=== PATIENT | female | born 1975 | race Caucasian/White ===

== ENCOUNTER 2017-01-24 14:18 | Emergency (ER) | payer OTHER ==
[~2017-01-24] VITALS: Ht 162.5 cm; Wt 90.3 kg
[~2017-01-24 14:18] MED LIST: 'BUSPAR5 MG PO; 'PARAFON FORTE500 M1 PO; ACTOS45 MG PO; AMBIEN10 MG PO; AMBIEN5 MG PO; ATIVAN1 MG PO; ATORVASTATIN CA20 M1 PO; CIPRO250 MG PO; CIPRO500 MG PO; CIPROFLOXACIN500 MG PO; CLEOCIN HCL150 MG PO; CYCLOBENZAPRINE10 MG PO; DAYPRO600 M1 PO; EES400 MG PO; FANAPT1 MG PO; FLAGYL500 MG PO; FLONASE 0.05% 121 EA NAS; FLUOXETINE HCL10 MG PO; FLUOXETINE HYDR20 M1 PO; GLUCOPHAGE1000 MG PO; GLYBURIDE5 MG PO; HYDROCHLOROTH12.5 M3 PO; INVOKANA 100 MG PO; JANUVIA50 MG PO; LAMICTAL100 MG PO; LIPITOR20 MG PO; LISINOPRIL10 MG PO; LOMOTIL 0.025 M1 TAB PO; MACROBID100 M1 PO; MOTRIN600 MG PO; MOTRIN800 MG PO; NAPROSYN500 MG PO; NORCO 5-325 TA1 EACH PO; NOVOLIN 70100 UNIT/1 SQ; PEPCID40 MG PO; PHENERGAN W/ DE30 ML PO; PREDNICOT10 MG PO; PRILOSEC20 M1 PO; PRISTIQ50 MG PO; PROAIR HFA0.09 MG/AC INH; PYRIDIUM100 MG PO; PYRIDIUM200 MG PO; RIFADIN IV; RIFADIN300 MG PO; RISPERDAL0.25 MG PO; ROBAXIN750 MG PO; TOPAMAX100 MG PO; TRAMADOL HCL50 MG PO; VALIUM10 MG PO; VALIUM5 MG PO; VICODIN 5/500 505 MG PO; VICTOZA6 MG/ML SC; ZESTRIL2.5 MG PO; ZOCOR20 MG PO; ZOFRAN ODT4 MG SL; ZOFRAN4 MG PO; Zofran4 MG PO
[2017-01-24 14:41] VITALS: BP 130/84
[2017-01-24 14:52] LABS: BILIRUBIN NEGATIVE (NEGATIVE); BLOOD TRACE-LYSED (NEGATIVE); CLARITY CLOUDY (CLEAR); COLOR YELLOW (YELLOW); GLUCOSE 3+ (NEGATIVE); KETONE NEGATIVE (NEGATIVE); LEUKO ESTERASE TRACE (NEGATIVE); NITRITE NEGATIVE (NEGATIVE); PH 6.5 (5.0-9.0); PROTEIN NEGATIVE (NEGATIVE); UROBILINOGEN 0.2 E.U./dl (0.2-1.0)
[2017-01-24 15:01] LABS: BACTERIA 4+; EPITHELIAL CELLS 50-55
[2017-01-24 15:02] LABS: URINE REFLEX COMMENT YES (NO)
[2017-01-24] MEDS ORDERED: Motrin,Rufen800 MG PO (16:47)
[2017-01-24] MEDS ORDERED: CYCLOBENZAPRINE5 M3 PO (16:47)
[2017-01-24] MEDS ORDERED: HYDROCODONE BIT1 T11 PO (16:47)
[2017-01-24] MEDS ORDERED: CIPRO500 MG PO (16:47)
== END 2017-01-24 16:54 | disposition home or self-care (01) ==
LOC: ED 14:18
PROVIDERS: Emergency Medicine
DX: S40.011A Contusion of right shoulder, initial encounter (principal); N30.00 Acute cystitis without hematuria; Z88.0 Allergy status to penicillin; Z88.1 Allergy status to other antibiotic agents; Z88.8 Allergy status to other drugs, medicaments and biological substances; Z79.899 Other long term (current) drug therapy; W18.39XA Other fall on same level, initial encounter; Y93.89 Activity, other specified; Y92.89 Other specified places as the place of occurrence of the external cause; Y99.8 Other external cause status

== ENCOUNTER 2017-01-29 20:06 | Inpatient (IN) | payer OTHER ==
[~2017-01-29] VITALS: Ht 162.6 cm; Wt 90.3 kg
[2017-01-29] VITALS (7 sets, daily range): BP systolic 120–141; BP diastolic 72–91
--- NOTE | ~2017-01-29 | O ---
[place], [place] OPERATIVE NOTE NAME: SILVIA PARDO UNIT #: [id number] ROOM: 426 DOCTOR: IBETH BRADFORD MD BIRTHDATE: [birth year] DOS: GASTROENDOSCOPIC REPORT INDICATIONS: The patient is a 41 years old who has presented with multiple medical problems, among which has been concerns about abdominal pain, epigastric distress, suspected blood in stool. The patient is concerned with family members having history of Crohn's disease. Her H and H was borderline, 11 and 32, microcytic indices. Depression, diabetes, dyslipidemia, obesity and bipolar. PAST SURGICAL HISTORY: Hysterectomy, cardiac catheterization. PAST SOCIAL HISTORY: Nonsmoker, nonalcohol consumer. FAMILY HISTORY: Noncontributory. ALLERGIES: TO PENICILLIN PRODUCTS AND SULFA PRODUCTS AND NEURONTIN. PROCEDURE: Today's procedure part of investigation is panendoscopy plus biopsy. PREMEDICATION: Versed and Diprivan. SCOPE: Olympus forward-viewing gastroscope Q10 video. REPORT: After putting the patient in left lateral position and after application of lubricant to the scope, the scope was introduced; thereafter, under direct visualization, I advanced through the length of the esophagus without difficulty. A small hiatal hernia was noticed. Gastric pouch was entered. Mild gastritis seen. Duodenal bulb, second and third part within normal limits. The patient extubated and tolerated the procedure well. IMPRESSION: Mild gastritis, status post biopsy and small hiatal hernia. PLAN AND DISCUSSION: I am not convinced this is the source of pathology of the patient. This patient requires a colonoscopy as outpatient. Thank you very much indeed. Sincerely, [place], [place] OPERATIVE NOTE NAME: SILVIA PARDO UNIT #: [id number] ROOM: 426 DOCTOR: IBETH BRADFORD MD BIRTHDATE: [birth year] IBETH BRADFORD MD CM:OPRECORD:OPERATIVE NOTE [id number] IBETH BRADFORD MD 02/01/17 1704 interface
[~2017-01-29 20:06] MED LIST changes: +CYCLOBENZAPRINE5 M3 PO; +HYDROCODONE BIT1 T11 PO; +Motrin,Rufen800 MG PO
[2017-01-29 20:36] LABS: BASO % 0.2 % (0.0-1.0); EOS # 0.1 10*3/uL (0.0-0.4); EOS % 1.1 % (1.0-4.0); HEMOGLOBIN 13.1 g/dl (12.0-16.0); IG # 0.1 10*3/uL (0.0-0.1); LYMPH # 2.3 10*3/uL (1.3-4.4); LYMPH % 18.7 % (27.0-41.0); MEAN CELL VOLUME 71.6 fl (81.0-99.0); MEAN CORPUSCULAR HGB CONC 33.6 g/dl (33.0-37.0); MEAN PLATELET VOLUME 10.1 fl (9.6-12.3); MONO # 0.7 10*3/uL (0.1-1.0); MONO % 5.8 % (3.0-9.0); NEUT % 73.8 % (47.0-73.0); PLATELET COUNT AUTOMATED 283 10*3/uL (130-400); RED BLOOD COUNT 5.45 10*6/uL (4.10-5.10); RED CELL DISTRI WIDTH 14.3 % (0-14.5); WHITE BLOOD COUNT 12.3 10*3/uL (4.8-10.8)
[2017-01-29 20:56] LABS: ALBUMIN 3.8 gm/dl (3.1-4.5); ALKALINE PHOSPHATASE 82 U/L (45-117); BILIRUBIN, TOTAL 0.3 mg/dl (0.2-1.0); BUN 32 mg/dl (7-24); CARBON DIOXIDE 20 mmol/L (21-32); CHLORIDE 99 mmol/L (98-107); EST GLOM FILT AFRICAN AMERICAN 39 ml/min; GLUCOSE 401 mg/dL (65-99); MAGNESIUM 1.8 mg/dL (1.5-2.1); SGOT/AST 17 IU/L (3-35); SGPT/ALT 12 U/L (12-78); SODIUM 136 mmol/L (136-145); TOTAL PROTEIN 7.6 gm/dL (6.4-8.2)
[2017-01-29 21:00] LABS: TROPONIN I < 0.015 ng/ml (<0.045)
[2017-01-29 21:01] LABS: INTERNATIONAL NORM RATIO 0.9 (2.0-3.5)
[2017-01-30 01:00] VITALS: BP 106/74
[2017-01-30 06:33] LABS: BASO % 0.1 % (0.0-1.0); EOS # 0.1 10*3/uL (0.0-0.4); EOS % 1.1 % (1.0-4.0); HEMATOCRIT 36.6 % (37.0-47.0); IG # 0.1 10*3/uL (0.0-0.1); LYMPH # 2.2 10*3/uL (1.3-4.4); LYMPH % 24.1 % (27.0-41.0); MEAN CELL VOLUME 73.3 fl (81.0-99.0); MEAN CORPUSCULAR HGB CONC 32.8 g/dl (33.0-37.0); MEAN PLATELET VOLUME 9.5 fl (9.6-12.3); MONO # 0.5 10*3/uL (0.1-1.0); MONO % 5.7 % (3.0-9.0); NEUT # 6.3 10*3/uL (2.3-7.9); NEUT % 68.5 % (47.0-73.0); PLATELET COUNT AUTOMATED 251 10*3/uL (130-400); RED BLOOD COUNT 4.99 10*6/uL (4.10-5.10); RED CELL DISTRI WIDTH 14.2 % (0-14.5); WHITE BLOOD COUNT 9.2 10*3/uL (4.8-10.8)
[2017-01-30 06:46] LABS: HEMOGLOBIN A1c 9.3 % (4.8-5.6)
[2017-01-30 07:05] LABS: INTERNATIONAL NORM RATIO 0.9 (2.0-3.5); PROTHROMBIN TIME 9.9 SECONDS (9.0-12.4)
[2017-01-30 07:09] LABS: FREE T4 0.81 ng/dl (0.76-1.46); MAGNESIUM 1.9 mg/dL (1.5-2.1); PHOSPHOROUS 3.5 mg/dL (2.5-4.9); POTASSIUM 3.6 mmol/L (3.5-5.1)
[2017-01-30 07:16] LABS: THYROID STIM HORMONE (HS) 1.11 uIU/ml (0.358-4.75)
[2017-01-30 07:41] LABS: FOLIC ACID 17.53 ng/mL (>5.38); VITAMIN D, 25-HYDROXY 20.2 ng/mL (30-100)
[2017-01-30 08:00] VITALS: BP 131/65
[2017-01-30 12:00] VITALS: BP 120/70
[2017-01-30 16:00] VITALS: BP 110/62
[2017-01-30 20:00] VITALS: BP 100/52
[2017-01-31 00:54] VITALS: BP 110/53
[2017-01-31 08:00] VITALS: BP 110/58
[2017-01-31 12:00] VITALS: BP 104/89
[2017-01-31 15:15] LABS: BILIRUBIN NEGATIVE (NEGATIVE); BLOOD NEGATIVE (NEGATIVE); CLARITY SL CLOUDY (CLEAR); COLOR YELLOW (YELLOW); GLUCOSE 3+ (NEGATIVE); KETONE 1+ (NEGATIVE); LEUKO ESTERASE TRACE (NEGATIVE); NITRITE NEGATIVE (NEGATIVE); PROTEIN NEGATIVE (NEGATIVE); SPECIFIC GRAVITY 1.025 (1.005-1.030); UROBILINOGEN 0.2 E.U./dl (0.2-1.0)
[2017-01-31 15:24] LABS: RBC 0-2 rbc/hpf (0-2); URINE REFLEX COMMENT YES (NO); WBC 0-2 wbc/hpf (0-5)
[2017-01-31 16:00] VITALS: BP 106/63
[2017-01-31 20:00] VITALS: BP 112/57
[2017-02-01] VITALS (8 sets, daily range): BP systolic 109–135; BP diastolic 58–76
[2017-02-01 08:05] LABS: BASO % 0.3 % (0.0-1.0); EOS # 0.1 10*3/uL (0.0-0.4); EOS % 1.5 % (1.0-4.0); HEMATOCRIT 32.8 % (37.0-47.0); LYMPH # 1.6 10*3/uL (1.3-4.4); LYMPH % 25.1 % (27.0-41.0); MEAN CELL VOLUME 72.1 fl (81.0-99.0); MEAN CORPUSCULAR HGB 24.2 pg (27.0-31.0); MEAN CORPUSCULAR HGB CONC 33.5 g/dl (33.0-37.0); MEAN PLATELET VOLUME 9.7 fl (9.6-12.3); MONO # 0.4 10*3/uL (0.1-1.0); MONO % 6.6 % (3.0-9.0); NEUT # 4.3 10*3/uL (2.3-7.9); NEUT % 66.2 % (47.0-73.0); PLATELET COUNT AUTOMATED 188 10*3/uL (130-400); RED BLOOD COUNT 4.55 10*6/uL (4.10-5.10); WHITE BLOOD COUNT 6.5 10*3/uL (4.8-10.8)
[2017-02-01 08:18] LABS: BUN 13 mg/dl (7-24); CARBON DIOXIDE 25 mmol/L (21-32); CHLORIDE 104 mmol/L (98-107); EST GLOM FILT AFRICAN AMERICAN > 60 ml/min; GLUCOSE 291 mg/dL (65-99); POTASSIUM 4.1 mmol/L (3.5-5.1); SODIUM 138 mmol/L (136-145)
[2017-02-01] MEDS ORDERED: OMEPRAZOLE20 M2 PO (17:16)
[2017-02-01] MEDS ORDERED: ZOFRAN4 MG PO (17:16)
== END 2017-02-01 17:43 | disposition home or self-care (01) | DRG 871 ==
LOC: ED 20:06 → 4E 01-30 00:08 → EDHOLD 01-30 00:08 → 4E 01-30 00:20
PROVIDERS: Emergency Medicine Emergency Medical Services; Internal Medicine
PROC: 0DB68ZX Excision of Stomach, Via Natural or Artificial Opening Endoscopic, Diagnostic (ICD-10-PCS; principal; 2017-02-01)
DX: A41.9 Sepsis, unspecified organism (principal); N17.0 Acute kidney failure with tubular necrosis; K52.9 Noninfective gastroenteritis and colitis, unspecified; E66.9 Obesity, unspecified; E11.65 Type 2 diabetes mellitus with hyperglycemia; E78.5 Hyperlipidemia, unspecified; F31.9 Bipolar disorder, unspecified; K29.70 Gastritis, unspecified, without bleeding; K44.9 Diaphragmatic hernia without obstruction or gangrene; M54.32 Sciatica, left side; E55.9 Vitamin D deficiency, unspecified; Z90.710 Acquired absence of both cervix and uterus; Z82.49 Family history of ischemic heart disease and other diseases of the circulatory system; Z68.34 Body mass index [BMI] 34.0-34.9, adult; Z88.0 Allergy status to penicillin; Z88.1 Allergy status to other antibiotic agents; Z88.2 Allergy status to sulfonamides; Z79.4 Long term (current) use of insulin; Z79.2 Long term (current) use of antibiotics; Z79.899 Other long term (current) drug therapy; Z83.79 Family history of other diseases of the digestive system

== ENCOUNTER 2017-03-06 12:41 | Inpatient (IN) | payer OTHER ==
[~2017-03-06] VITALS: Ht 162.5 cm; Wt 89.9 kg
[~2017-03-06 12:41] MED LIST changes: +OMEPRAZOLE20 M2 PO
[2017-03-06 13:22] VITALS: BP 152/92
[2017-03-06 14:20] LABS: BASO % 0.2 % (0.0-1.0); EOS # 0.1 10*3/uL (0.0-0.4); EOS % 0.8 % (1.0-4.0); HEMATOCRIT 35.6 % (37.0-47.0); HEMOGLOBIN 11.9 g/dl (12.0-16.0); LYMPH # 1.6 10*3/uL (1.3-4.4); LYMPH % 18.8 % (27.0-41.0); MEAN CELL VOLUME 72.5 fl (81.0-99.0); MEAN CORPUSCULAR HGB 24.2 pg (27.0-31.0); MEAN CORPUSCULAR HGB CONC 33.4 g/dl (33.0-37.0); MEAN PLATELET VOLUME 9.8 fl (9.6-12.3); MONO # 0.3 10*3/uL (0.1-1.0); MONO % 3.8 % (3.0-9.0); NEUT # 6.4 10*3/uL (2.3-7.9); NEUT % 75.9 % (47.0-73.0); PLATELET COUNT AUTOMATED 230 10*3/uL (130-400); RED BLOOD COUNT 4.91 10*6/uL (4.10-5.10); RED CELL DISTRI WIDTH 15.2 % (0-14.5); WHITE BLOOD COUNT 8.4 10*3/uL (4.8-10.8)
[2017-03-06 14:28] LABS: INTERNATIONAL NORM RATIO 0.9 (2.0-3.5); PROTHROMBIN TIME 9.8 SECONDS (9.0-12.4)
[2017-03-06 14:35] LABS: ALBUMIN 3.3 gm/dl (3.1-4.5); ALKALINE PHOSPHATASE 79 U/L (45-117); BILIRUBIN, TOTAL 0.2 mg/dl (0.2-1.0); BUN 18 mg/dl (7-24); C-REACTIVE PROTEIN 0.83 MG/DL (0-0.3); CARBON DIOXIDE 24 mmol/L (21-32); CHLORIDE 105 mmol/L (98-107); CPK 21 U/L (26-192); EST GLOM FILT AFRICAN AMERICAN > 60 ml/min; GLUCOSE 388 mg/dL (65-99); MAGNESIUM 1.8 mg/dL (1.5-2.1); SGOT/AST 6 IU/L (3-35); SGPT/ALT 12 U/L (12-78); SODIUM 138 mmol/L (136-145); TOTAL PROTEIN 6.7 gm/dL (6.4-8.2)
[2017-03-06 14:38] LABS: CKMB < 0.5 ng/ml (0.5-3.6); TROPONIN I < 0.015 ng/ml (<0.045)
[2017-03-06 14:53] LABS: BILIRUBIN NEGATIVE (NEGATIVE); BLOOD NEGATIVE (NEGATIVE); CLARITY CLEAR (CLEAR); COLOR YELLOW (YELLOW); GLUCOSE 3+ (NEGATIVE); KETONE NEGATIVE (NEGATIVE); LEUKO ESTERASE NEGATIVE (NEGATIVE); NITRITE NEGATIVE (NEGATIVE); PH 5.5 (5.0-9.0); PROTEIN NEGATIVE (NEGATIVE); SPECIFIC GRAVITY <= 1.005 (1.005-1.030); UROBILINOGEN 0.2 E.U./dl (0.2-1.0)
[2017-03-06 15:07] LABS: RBC 0-2 rbc/hpf (0-2); URINE REFLEX COMMENT NO (NO); WBC 0-2 wbc/hpf (0-5)
[2017-03-06 16:16] LABS: LA>2 REFLEX 2 HR DRAW NOW
[2017-03-06 16:37] VITALS: BP 142/87
[2017-03-06] MEDS ORDERED: LISINOPRIL/HCTZ1 TA4 PO (16:43)
[2017-03-06] MEDS ORDERED: OMEPRAZOLE40 MG PO (16:44)
[2017-03-06 16:50] VITALS: BP 137/74
[2017-03-06 20:00] VITALS: BP 145/78
[2017-03-07] VITALS: BP 124/71
[2017-03-07 04:32] VITALS: BP 107/61
[2017-03-07 07:41] LABS: BASO % 0.3 % (0.0-1.0); EOS # 0.1 10*3/uL (0.0-0.4); EOS % 2.1 % (1.0-4.0); HEMATOCRIT 31.7 % (37.0-47.0); HEMOGLOBIN 10.4 g/dl (12.0-16.0); LYMPH # 1.9 10*3/uL (1.3-4.4); LYMPH % 28.9 % (27.0-41.0); MEAN CELL VOLUME 73.5 fl (81.0-99.0); MEAN CORPUSCULAR HGB 24.1 pg (27.0-31.0); MEAN CORPUSCULAR HGB CONC 32.8 g/dl (33.0-37.0); MEAN PLATELET VOLUME 9.7 fl (9.6-12.3); MONO # 0.4 10*3/uL (0.1-1.0); MONO % 5.4 % (3.0-9.0); NEUT # 4.2 10*3/uL (2.3-7.9); NEUT % 62.8 % (47.0-73.0); PLATELET COUNT AUTOMATED 231 10*3/uL (130-400); RED BLOOD COUNT 4.31 10*6/uL (4.10-5.10); WHITE BLOOD COUNT 6.6 10*3/uL (4.8-10.8)
[2017-03-07 07:59] LABS: BUN 14 mg/dl (7-24); CARBON DIOXIDE 26 mmol/L (21-32); CHLORIDE 108 mmol/L (98-107); EST GLOM FILT AFRICAN AMERICAN > 60 ml/min; GLUCOSE 181 mg/dL (65-99); POTASSIUM 3.5 mmol/L (3.5-5.1); SODIUM 144 mmol/L (136-145)
[2017-03-07 08:00] VITALS: BP 130/78
[2017-03-07 08:06] LABS: FREE T4 0.88 ng/dl (0.76-1.46)
[2017-03-07 12:00] VITALS: BP 111/75
== END 2017-03-07 14:41 | disposition home or self-care (01) | DRG 880 ==
LOC: ED 12:41 → 5E 15:38 → EDHOLD 15:38 → 5E 16:26
PROVIDERS: Emergency Medicine; Internal Medicine Hospice and Palliative Medicine
DX: F41.9 Anxiety disorder, unspecified (principal); E10.65 Type 1 diabetes mellitus with hyperglycemia; E66.09 Other obesity due to excess calories; F31.9 Bipolar disorder, unspecified; R00.0 Tachycardia, unspecified; K44.9 Diaphragmatic hernia without obstruction or gangrene; K29.50 Unspecified chronic gastritis without bleeding; Z90.710 Acquired absence of both cervix and uterus; Z82.49 Family history of ischemic heart disease and other diseases of the circulatory system; Z88.0 Allergy status to penicillin; Z88.1 Allergy status to other antibiotic agents; Z88.2 Allergy status to sulfonamides; Z88.8 Allergy status to other drugs, medicaments and biological substances; Z79.4 Long term (current) use of insulin; Z79.899 Other long term (current) drug therapy; Z68.34 Body mass index [BMI] 34.0-34.9, adult

== ENCOUNTER → 2017-04-26 | Day surgery (SDC) | payer OTHER ==
[2017-04-26] VITALS (14 sets, daily range): BP systolic 104–143; BP diastolic 51–89
[~2017-04-26] VITALS: Ht 162.5 cm; Wt 90.7 kg
[~2017-04-26] MED LIST changes: +LISINOPRIL/HCTZ1 TA4 PO; +OMEPRAZOLE40 MG PO
== END | disposition home or self-care (01) ==
LOC: SDC 04-21 10:15
DX: K59.00 Constipation, unspecified (principal); K62.5 Hemorrhage of anus and rectum; F32.9 Major depressive disorder, single episode, unspecified; E11.9 Type 2 diabetes mellitus without complications; K21.9 Gastro-esophageal reflux disease without esophagitis; F41.9 Anxiety disorder, unspecified; Z90.710 Acquired absence of both cervix and uterus; Z82.3 Family history of stroke; Z80.9 Family history of malignant neoplasm, unspecified; Z79.4 Long term (current) use of insulin; Z98.890 Other specified postprocedural states; Z88.0 Allergy status to penicillin; Z88.1 Allergy status to other antibiotic agents; Z88.8 Allergy status to other drugs, medicaments and biological substances

== ENCOUNTER → 2017-05-19 | Outpatient (CLI) | payer OTHER ==
[2017-05-19 12:01] LABS: BASO % 0.2 % (0.0-1.0); EOS # 0.2 10*3/uL (0.0-0.4); EOS % 1.9 % (1.0-4.0); HEMATOCRIT 37.4 % (37.0-47.0); HEMOGLOBIN 12.2 g/dl (12.0-16.0); LYMPH # 1.9 10*3/uL (1.3-4.4); MEAN CELL VOLUME 71.8 fl (81.0-99.0); MEAN CORPUSCULAR HGB 23.4 pg (27.0-31.0); MEAN CORPUSCULAR HGB CONC 32.6 g/dl (33.0-37.0); MEAN PLATELET VOLUME 9.7 fl (9.6-12.3); MONO # 0.4 10*3/uL (0.1-1.0); MONO % 4.8 % (3.0-9.0); NEUT # 5.6 10*3/uL (2.3-7.9); NEUT % 68.6 % (47.0-73.0); PLATELET COUNT AUTOMATED 274 10*3/uL (130-400); RED BLOOD COUNT 5.21 10*6/uL (4.10-5.10); RED CELL DISTRI WIDTH 14.2 % (0-14.5); WHITE BLOOD COUNT 8.1 10*3/uL (4.8-10.8)
[2017-05-19 12:04] LABS: HEMOGLOBIN A1c 8.8 % (4.8-5.6)
[2017-05-19 12:20] LABS: ALBUMIN 3.3 gm/dl (3.1-4.5); BILIRUBIN, TOTAL 0.2 mg/dl (0.2-1.0); BUN 15 mg/dl (7-24); CARBON DIOXIDE 26 mmol/L (21-32); CHLORIDE 104 mmol/L (98-107); CHOLESTEROL 233 mg/dL (<200); EST GLOM FILT AFRICAN AMERICAN > 60 ml/min; GLUCOSE 219 mg/dL (65-99); POTASSIUM 4.3 mmol/L (3.5-5.1); SGOT/AST 10 IU/L (3-35); SGPT/ALT 17 U/L (12-78); SODIUM 138 mmol/L (136-145); TOTAL PROTEIN 7.3 gm/dL (6.4-8.2); TRIGLYCERIDES 104 mg/dl (<150); VLDL CHOLESTEROL 21 mg/dL (6-40)
[2017-05-19 12:22] LABS: ALKALINE PHOSPHATASE 80 U/L (45-117); HDL CHOLESTEROL 57 mg/dl (40-60); LDL CHOLESTEROL 155 mg/dL (9-159)
== END | disposition home or self-care (01) ==
LOC: LAB 11:31
PROVIDERS: Nurse Practitioner Family
DX: E11.9 Type 2 diabetes mellitus without complications (principal)

== ENCOUNTER 2017-07-25 13:02 | Emergency (ER) | payer OTHER ==
[~2017-07-25] VITALS: Ht 162.5 cm; Wt 95.7 kg
[2017-07-25 13:12] VITALS: BP 147/83
[2017-07-25] MEDS ORDERED: CEPHALEXIN500 M1 PO (15:31)
== END 2017-07-25 15:32 | disposition home or self-care (01) ==
LOC: ED 13:02
DX: S90.31XA Contusion of right foot, initial encounter (principal); S99.921A Unspecified injury of right foot, initial encounter; L03.115 Cellulitis of right lower limb; R60.0 Localized edema; E11.9 Type 2 diabetes mellitus without complications; Z90.710 Acquired absence of both cervix and uterus; Z79.899 Other long term (current) drug therapy; Z88.0 Allergy status to penicillin; Z88.1 Allergy status to other antibiotic agents; Z88.8 Allergy status to other drugs, medicaments and biological substances; X58.XXXA Exposure to other specified factors, initial encounter; Y93.89 Activity, other specified; Y92.89 Other specified places as the place of occurrence of the external cause; Y99.9 Unspecified external cause status

== ENCOUNTER → 2017-10-30 | Outpatient (CLI) | payer OTHER ==
[~2017-10-30] MED LIST changes: +CEPHALEXIN500 M1 PO
[2017-10-30 12:00] LABS: BASO % 0.3 % (0.0-1.0); EOS # 0.1 10*3/uL (0.0-0.4); EOS % 1.6 % (1.0-4.0); HEMATOCRIT 38.8 % (37.0-47.0); HEMOGLOBIN 12.8 g/dl (12.0-16.0); LYMPH # 1.8 10*3/uL (1.3-4.4); MEAN CELL VOLUME 72.5 fl (81.0-99.0); MEAN CORPUSCULAR HGB 23.9 pg (27.0-31.0); MEAN PLATELET VOLUME 9.8 fl (9.6-12.3); MONO # 0.3 10*3/uL (0.1-1.0); MONO % 4.1 % (3.0-9.0); NEUT # 5.2 10*3/uL (2.3-7.9); NEUT % 69.6 % (47.0-73.0); PLATELET COUNT AUTOMATED 278 10*3/uL (130-400); RED BLOOD COUNT 5.35 10*6/uL (4.10-5.10); RED CELL DISTRI WIDTH 15.2 % (0-14.5); WHITE BLOOD COUNT 7.5 10*3/uL (4.8-10.8)
[2017-10-30 12:22] LABS: ALBUMIN 3.6 gm/dl (3.1-4.5); ALKALINE PHOSPHATASE 76 U/L (45-117); BUN 19 mg/dl (7-24); CHLORIDE 107 mmol/L (98-107); CHOLESTEROL 213 mg/dL (<200); CREATININE 0.88 mg/dL (0.55-1.02); HDL CHOLESTEROL 50 mg/dl (40-60); LDL CHOLESTEROL 134 mg/dL (9-159); POTASSIUM 3.6 mmol/L (3.5-5.1); SGOT/AST 9 IU/L (3-35); SGPT/ALT 15 U/L (12-78); SODIUM 139 mmol/L (136-145); TOTAL PROTEIN 7.4 gm/dL (6.4-8.2); TRIGLYCERIDES 143 mg/dl (<150); VLDL CHOLESTEROL 29 mg/dL (6-40)
== END | disposition home or self-care (01) ==
LOC: LAB 11:22
PROVIDERS: Nurse Practitioner Family
DX: I10 Essential (primary) hypertension (principal); E11.9 Type 2 diabetes mellitus without complications; E66.9 Obesity, unspecified

== ENCOUNTER 2018-02-05 09:36 | Inpatient (IN) | payer OTHER ==
[~2018-02-05] VITALS: Ht 162.5 cm; Wt 94.0 kg
--- NOTE | ~2018-02-05 | CON ---
[place], [place] REPORT OF CONSULTATION NAME: SILVIA PARDO [facility] #: [id number] UNIT #: [id number] ROOM: 412 DOCTOR: CHONG ROBERTSON MD BIRTHDATE: [birth year] DOS: 02/05/2018 REASON FOR CONSULTATION: The patient was seen today, 02/05/2018, at [facility] for evaluation of chest pain and syncope. HISTORY OF PRESENT ILLNESS: The patient is a 42-year-old woman who has a history of type 2 diabetes mellitus, on insulin, hypertension, anxiety, depression and gastroesophageal reflux disease along with a family history of early coronary disease in her father. She presented to the hospital in November 2016 with recurrent chest pain. A stress test done in the previous year had been unremarkable, but her pains persisted and therefore she did undergo cardiac catheterization on 12/06/2016. This showed a 40% stenosis of a dominant right coronary artery, but no other significant disease. It was felt that her pains were not cardiac in origin. Since then, she has continued to have intermittent chest pains. Over the last 2 days, she has also had syncopal episodes. She states that she had 5 within the last 48 hours. When she awoke from the episode, she felt heaviness in her chest, diaphoresis, and palpitations. She checked her sugar after one of these episodes and it was 124. Because of her concern regarding her cardiac status, she came to the Emergency Room. Since she has been hospitalized, she has had constant mild aching in her chest. She has some aching in her left arm and left leg. She has not had any further syncopal episodes. Her heart monitor has not shown any significant arrhythmias. PAST MEDICAL HISTORY: Includes the followin. Type 2 diabetes mellitus, on insulin. 2. Anxiety. 3. Depression. 4. Gastroesophageal reflux disease. 5. Essential hypertension. 6. History of sciatica on the left. 7. History of hysterectomy. MEDICATIONS: Prior to admission: Fluticasone nasal spray b.i.d., aspirin 81 mg daily, Canagliflozin 300 mg daily, cetirizine 10 mg daily, cholecalciferol 5000 units daily, diazepam 5 mg b.i.d., lisinopril with hydrochlorothiazide 1 tablet daily, magnesium oxide 250 mg tablet once a day, omeprazole 40 mg b.i.d., insulin 80 units subcutaneously at bedtime and regular insulin 70/30 of 60 units b.i.d. ALLERGIES: She lists allergies to PENICILLIN, AMPICILLIN, SULFAMETHOXAZOLE, TRIMETHOPRIM and GABAPENTIN. FAMILY HISTORY: The patient states that her mother and father both had heart disease in their early years. Her mother had heart disease in her 30s and her father had a heart attack in his early 20s. REVIEW OF SYSTEMS: The patient denies diplopia or loss of vision. She did have the syncopal episodes noted above. She denies nausea or vomiting. She denies fevers, chills, sweats or recent weight change. She has been taking her medications as prescribed. She denies orthopnea or PND. She does note aching [place], [place] REPORT OF CONSULTATION NAME: SILVIA PARDO UNIT #: [id number] ROOM: [facility] DOCTOR: CHONG ROBERTSON MD BIRTHDATE: [birth year] in her left arm and left leg. She did have the chest pain documented above. Breathing has been good. She denies cough, hemoptysis or hematemesis. She has a normal appetite. She denies blood in her stool or urine. She does have chronic abdominal pain and states that she does have a history of diverticulosis. She denies any peripheral edema. The remainder of the review of systems is negative except as noted above. SOCIAL HISTORY: The patient denies use of cigarettes or alcohol. PHYSICAL EXAMINATION: GENERAL: The patient is an overweight white female who is awake, alert and oriented. VITAL SIGNS: Pulse is 88 and regular, blood pressure is 121/72. She is afebrile. She weighs 94.0 kg and has a body mass index of 35.6. HEENT: Normocephalic and atraumatic. Extraocular muscles are intact. Sclerae are clear. Pupils are equal, round and react to light. The oral mucosa is moist. Tongue is midline. NECK: Supple. She has no jugular distention. Carotids are full. I heard no bruits. She had no neck or supraclavicular masses and no thyromegaly. LUNGS: Respirations are unlabored. Her chest is clear to auscultation and percussion. She has no presacral edema or chest wall tenderness. HEART: Has a regular rhythm. She has a fourth heart sound, but no third heart sound or murmur. The PMI is not displaced. She has no precordial heave, lift or thrill. ABDOMEN: Soft and minimally tender, but normoactive without masses, organomegaly or bruits. EXTREMITIES: Showed no edema. Peripheral pulses are palpable in the feet. LABORATORY DATA: I reviewed her electrocardiogram, which showed sinus rhythm and was a normal tracing. Serial troponin levels have been normal thus far. Sugar on admission was 136. IMPRESSIONS: 1. Syncopal episodes. Etiology not yet determined. However, by history, it sounds like these may be related to swings in her sugar. I see no evidence for a significant arrhythmia causing her problems. 2. History of mild coronary artery disease. 3. Atypical chest pain. 4. Strong family history of coronary artery disease. 5. Type 2 diabetes mellitus, on insulin. 6. Hyperlipidemia. 7. Hypertension. 8. Anxiety and depression. PLAN: We will evaluate her further with an echocardiogram and a stress test. We will also start her on a statin because of her risk factors. Further recommendations will depend upon the results of her stress test. I thank the hospitalist physicians for asking our advice regarding his care. [place], [place] REPORT OF CONSULTATION NAME: SILVIA PARDO UNIT #: [id number] ROOM: 412 DOCTOR: CHONG ROBERTSON MD BIRTHDATE: [birth year] CHONG ROBERTSON MD CM:CONSTR:REPORT OF CONSULTATION 1456 02/05/18 1546 interface
--- NOTE | ~2018-02-05 | PR ---
[place], [place] PROGRESS NOTE NAME: SILVIA PARDO [facility] #: [id number] UNIT #: [id number] ROOM: 412 DOCTOR: CHONG ROBERTSON MD BIRTHDATE: [birth year] DOS: 02/06/2018 SUBJECTIVE: The patient was seen in the cardiology department today just prior to her stress test. She is a 42-year-old woman who came to the hospital yesterday with chest discomfort. Thus far, she has ruled out for myocardial infarction. Her sugars are still not well controlled. This morning, her blood sugar was in the 60s. She was given IV dextrose. She still feels quite weak this morning after the IV dextrose. She denies any chest pain at this time. Her blood sugar right now is 101. PHYSICAL EXAMINATION: VITAL SIGNS: Her pulse rate now is 69, blood pressure is 125/71. She has a temperature of 100.7. NECK: Supple. She has no jugular distention. Carotids are full. LUNGS: Respirations are unlabored. Chest is clear. HEART: Has a regular rhythm and S4 gallop. ABDOMEN: Soft and normally active. EXTREMITIES: Showed no edema. IMPRESSION: 1. Atypical chest pain. The patient shows no signs of acute coronary syndrome. 2. Diabetes mellitus with sugars not yet well controlled. PLAN: We will proceed with a pharmacologic stress test. Further recommendations from cardiac standpoint will depend upon the results of the stress test. We thank the hospitalist physicians for asking our advice regarding the patient's care. CHONG ROBERTSON MD CM:PNTRANS [id number] CHONG ROBERTSON MD 02/07/18 1206 interface
[2018-02-05 09:46] VITALS: BP 147/76
[2018-02-05 09:57] LABS: BASO % 0.3 % (0.0-1.0); EOS # 0.1 10*3/uL (0.0-0.4); EOS % 1.4 % (1.0-4.0); HEMATOCRIT 37.2 % (37.0-47.0); LYMPH # 1.7 10*3/uL (1.3-4.4); LYMPH % 21.3 % (27.0-41.0); MEAN CELL VOLUME 72.4 fl (81.0-99.0); MEAN CORPUSCULAR HGB 23.3 pg (27.0-31.0); MEAN CORPUSCULAR HGB CONC 32.3 g/dl (33.0-37.0); MEAN PLATELET VOLUME 9.6 fl (9.6-12.3); MONO # 0.4 10*3/uL (0.1-1.0); MONO % 5.4 % (3.0-9.0); NEUT # 5.6 10*3/uL (2.3-7.9); NEUT % 71.2 % (47.0-73.0); PLATELET COUNT AUTOMATED 274 10*3/uL (130-400); RED BLOOD COUNT 5.14 10*6/uL (4.10-5.10); RED CELL DISTRI WIDTH 14.9 % (0-14.5); WHITE BLOOD COUNT 7.8 10*3/uL (4.8-10.8)
[2018-02-05 10:05] LABS: ACT PARTIAL THROMBO TIME 22.4 SECONDS (20.8-31.5); INTERNATIONAL NORM RATIO 0.9 (2.0-3.5)
[2018-02-05 10:13] LABS: ALBUMIN 3.7 gm/dl (3.1-4.5); ALKALINE PHOSPHATASE 94 U/L (45-117); BUN 12 mg/dl (7-24); CHLORIDE 101 mmol/L (98-107); CREATININE 0.84 mg/dL (0.55-1.02); POTASSIUM 3.4 mmol/L (3.5-5.1); SGOT/AST 12 IU/L (3-35); SGPT/ALT 17 U/L (12-78); SODIUM 138 mmol/L (136-145); TOTAL PROTEIN 7.7 gm/dL (6.4-8.2)
[2018-02-05 10:16] LABS: TROPONIN I < 0.015 ng/ml (<0.045)
[2018-02-05] MEDS ORDERED: ASPIRIN CHEWABL81 MG PO (11:19)
[2018-02-05] MEDS ORDERED: MAGNESIUM OXID250 M2 PO (11:21)
[2018-02-05] MEDS ORDERED: ALL DAY ALLERGY10 M2 PO (11:21)
[2018-02-05] MEDS ORDERED: VITAMIN D5000 UNIT PO (11:21)
[2018-02-05] MEDS ORDERED: INVOKANA300 M1 PO (11:22)
[2018-02-05] MEDS ORDERED: ALLER-FLO15.8 ML NAS (11:24)
[2018-02-05 11:53] VITALS: BP 142/84
[2018-02-05 12:00] VITALS: BP 121/72
[2018-02-05 12:23] VITALS: BP 121/72
[2018-02-05] MEDS ORDERED: DIAZEPAM5 MG PO (13:23)
[2018-02-05] MEDS ORDERED: TOUJEO SOL300 UNIT/1 SQ (14:25)
[2018-02-05 16:00] VITALS: BP 105/62
[2018-02-05 20:00] VITALS: BP 119/69
[2018-02-06 00:30] VITALS: BP 110/71
[2018-02-06 04:00] VITALS: BP 111/68
[2018-02-06 08:00] VITALS: BP 125/71
[2018-02-06 08:20] LABS: BASO % 0.2 % (0.0-1.0); EOS # 0.1 10*3/uL (0.0-0.4); HEMATOCRIT 37.2 % (37.0-47.0); HEMOGLOBIN 11.7 g/dl (12.0-16.0); LYMPH # 0.9 10*3/uL (1.3-4.4); LYMPH % 9.5 % (27.0-41.0); MEAN CORPUSCULAR HGB 23.6 pg (27.0-31.0); MEAN CORPUSCULAR HGB CONC 31.5 g/dl (33.0-37.0); MEAN PLATELET VOLUME 10.1 fl (9.6-12.3); MONO # 0.4 10*3/uL (0.1-1.0); MONO % 3.8 % (3.0-9.0); NEUT # 7.7 10*3/uL (2.3-7.9); NEUT % 85.1 % (47.0-73.0); PLATELET COUNT AUTOMATED 250 10*3/uL (130-400); RED BLOOD COUNT 4.96 10*6/uL (4.10-5.10); WHITE BLOOD COUNT 9.1 10*3/uL (4.8-10.8)
[2018-02-06 08:26] LABS: BUN 11 mg/dl (7-24); CHLORIDE 101 mmol/L (98-107); CHOLESTEROL 212 mg/dL (<200); CREATININE 0.89 mg/dL (0.55-1.02); HDL CHOLESTEROL 39 mg/dl (40-60); LDL CHOLESTEROL 127 mg/dL (9-159); PHOSPHOROUS 3.4 mg/dL (2.5-4.9); POTASSIUM 3.8 mmol/L (3.5-5.1); SODIUM 138 mmol/L (136-145); TRIGLYCERIDES 230 mg/dl (<150); VLDL CHOLESTEROL 46 mg/dL (6-40)
[2018-02-06 09:00] LABS: VITAMIN D, 25-HYDROXY 23.3 ng/mL (30-100)
[2018-02-06 12:00] VITALS: BP 121/57
[2018-02-06 16:00] VITALS: BP 95/60
[2018-02-06 20:00] VITALS: BP 113/69
[2018-02-07 00:26] VITALS: BP 101/62
[2018-02-07 08:00] VITALS: BP 116/69
[2018-02-07] MEDS ORDERED: ZOCOR20 MG PO (13:10)
== END 2018-02-07 14:06 | disposition home or self-care (01) | DRG 206 ==
LOC: ED 09:36 → EDHOLD 09:58 → 4E 09:58
PROVIDERS: Nurse Practitioner Family; Student in an Organized Health Care Education/Training Program
PROC: 4A02XM4 Measurement of Cardiac Total Activity, External Approach (ICD-10-PCS; principal; 2018-02-06)
PROC: 3E073KZ Introduction of Other Diagnostic Substance into Coronary Artery, Percutaneous Approach (ICD-10-PCS; 2018-02-06)
DX: M94.0 Chondrocostal junction syndrome [Tietze] (principal); E11.65 Type 2 diabetes mellitus with hyperglycemia; E66.01 Morbid (severe) obesity due to excess calories; D50.9 Iron deficiency anemia, unspecified; D72.810 Lymphocytopenia; I25.10 Atherosclerotic heart disease of native coronary artery without angina pectoris; M54.32 Sciatica, left side; E87.6 Hypokalemia; E78.5 Hyperlipidemia, unspecified; E55.9 Vitamin D deficiency, unspecified; F32.9 Major depressive disorder, single episode, unspecified; K44.9 Diaphragmatic hernia without obstruction or gangrene; K21.9 Gastro-esophageal reflux disease without esophagitis; R07.89 Other chest pain; K29.70 Gastritis, unspecified, without bleeding; F41.9 Anxiety disorder, unspecified; Z68.35 Body mass index [BMI] 35.0-35.9, adult; Z79.4 Long term (current) use of insulin; Z88.1 Allergy status to other antibiotic agents; Z88.0 Allergy status to penicillin; Z88.2 Allergy status to sulfonamides; Z88.8 Allergy status to other drugs, medicaments and biological substances; Z90.710 Acquired absence of both cervix and uterus; Z82.49 Family history of ischemic heart disease and other diseases of the circulatory system; Z82.3 Family history of stroke; Z80.9 Family history of malignant neoplasm, unspecified

== ENCOUNTER 2018-02-28 12:27 | Emergency (ER) | payer OTHER ==
[~2018-02-28] VITALS: Ht 162.5 cm; Wt 95.3 kg
[~2018-02-28 12:27] MED LIST changes: +ALL DAY ALLERGY10 M2 PO; +ALLER-FLO15.8 ML NAS; +ASPIRIN CHEWABL81 MG PO; +DIAZEPAM5 MG PO; +INVOKANA300 M1 PO; +MAGNESIUM OXID250 M2 PO; +TOUJEO SOL300 UNIT/1 SQ; +VITAMIN D5000 UNIT PO
[2018-02-28 12:31] VITALS: BP 96/68
[2018-02-28 13:01] LABS: BASO % 0.2 % (0.0-1.0); EOS # 0.1 10*3/uL (0.0-0.4); EOS % 1.1 % (1.0-4.0); HEMATOCRIT 36.9 % (37.0-47.0); HEMOGLOBIN 11.9 g/dl (12.0-16.0); MEAN CELL VOLUME 72.4 fl (81.0-99.0); MEAN CORPUSCULAR HGB 23.3 pg (27.0-31.0); MEAN CORPUSCULAR HGB CONC 32.2 g/dl (33.0-37.0); MEAN PLATELET VOLUME 10.2 fl (9.6-12.3); MONO # 0.6 10*3/uL (0.1-1.0); MONO % 5.5 % (3.0-9.0); NEUT # 7.7 10*3/uL (2.3-7.9); NEUT % 73.7 % (47.0-73.0); PLATELET COUNT AUTOMATED 300 10*3/uL (130-400); RED CELL DISTRI WIDTH 15.2 % (0-14.5); WHITE BLOOD COUNT 10.5 10*3/uL (4.8-10.8)
[2018-02-28 13:11] LABS: ACT PARTIAL THROMBO TIME 21.1 SECONDS (20.8-31.5); INTERNATIONAL NORM RATIO 0.9 (2.0-3.5)
[2018-02-28 13:27] LABS: ALBUMIN 3.7 gm/dl (3.1-4.5); ALKALINE PHOSPHATASE 87 U/L (45-117); BUN 18 mg/dl (7-24); CHLORIDE 99 mmol/L (98-107); CREATININE 1.13 mg/dL (0.55-1.02); POTASSIUM 3.9 mmol/L (3.5-5.1); SGOT/AST 9 IU/L (3-35); SGPT/ALT 14 U/L (12-78); SODIUM 132 mmol/L (136-145); TOTAL PROTEIN 7.3 gm/dL (6.4-8.2)
[2018-02-28 13:31] LABS: TROPONIN I < 0.015 ng/ml (<0.045)
[2018-02-28] MEDS ORDERED: NAPROSYN500 MG PO (15:05)
[2018-02-28] MEDS ORDERED: CYCLOBENZAPRINE5 M3 PO (15:05)
== END 2018-02-28 15:29 | disposition home or self-care (01) ==
LOC: ED 12:27
PROVIDERS: Emergency Medicine
DX: S49.92XA Unspecified injury of left shoulder and upper arm, initial encounter (principal); R55 Syncope and collapse; M54.2 Cervicalgia; R07.81 Pleurodynia; E78.5 Hyperlipidemia, unspecified; E11.65 Type 2 diabetes mellitus with hyperglycemia; E66.9 Obesity, unspecified; Z79.4 Long term (current) use of insulin; Z90.710 Acquired absence of both cervix and uterus; Z79.82 Long term (current) use of aspirin; Z88.0 Allergy status to penicillin; Z88.1 Allergy status to other antibiotic agents; Z88.8 Allergy status to other drugs, medicaments and biological substances; W19.XXXA Unspecified fall, initial encounter; Y93.89 Activity, other specified; Y92.89 Other specified places as the place of occurrence of the external cause; Y99.9 Unspecified external cause status

== ENCOUNTER → 2018-04-20 | Outpatient (CLI) | payer OTHER | END | disposition home or self-care (01) | LOC: RESCLI 02:40 | DX: I10 Essential (primary) hypertension (principal); E11.40 Type 2 diabetes mellitus with diabetic neuropathy, unspecified; I25.119 Atherosclerotic heart disease of native coronary artery with unspecified angina pectoris; K59.00 Constipation, unspecified; K21.9 Gastro-esophageal reflux disease without esophagitis; F41.9 Anxiety disorder, unspecified; E66.01 Morbid (severe) obesity due to excess calories; J30.9 Allergic rhinitis, unspecified; F32.9 Major depressive disorder, single episode, unspecified; R29.898 Other symptoms and signs involving the musculoskeletal system; Z79.4 Long term (current) use of insulin; Z88.0 Allergy status to penicillin ==

== ENCOUNTER → 2018-05-02 | Outpatient (CLI) | payer OTHER ==
[2018-05-02 11:50] LABS: BILIRUBIN NEGATIVE (NEGATIVE); BLOOD NEGATIVE (NEGATIVE); CLARITY CLOUDY (CLEAR); COLOR YELLOW (YELLOW); GLUCOSE 3+ (NEGATIVE); KETONE NEGATIVE (NEGATIVE); LEUKO ESTERASE NEGATIVE (NEGATIVE); NITRITE NEGATIVE (NEGATIVE); PH 5.5 (5.0-9.0); UROBILINOGEN 0.2 E.U./dl (0.2-1.0)
[2018-05-02 12:02] LABS: BASO % 0.3 % (0.0-1.0); EOS # 0.1 10*3/uL (0.0-0.4); EOS % 1.4 % (1.0-4.0); HEMATOCRIT 35.5 % (37.0-47.0); HEMOGLOBIN 11.2 g/dl (12.0-16.0); LYMPH # 1.6 10*3/uL (1.3-4.4); MEAN CELL VOLUME 73.7 fl (81.0-99.0); MEAN CORPUSCULAR HGB 23.2 pg (27.0-31.0); MEAN CORPUSCULAR HGB CONC 31.5 g/dl (33.0-37.0); MEAN PLATELET VOLUME 10.3 fl (9.6-12.3); MONO # 0.4 10*3/uL (0.1-1.0); MONO % 5.4 % (3.0-9.0); NEUT # 5.2 10*3/uL (2.3-7.9); NEUT % 70.4 % (47.0-73.0); PLATELET COUNT AUTOMATED 298 10*3/uL (130-400); RED BLOOD COUNT 4.82 10*6/uL (4.10-5.10); RED CELL DISTRI WIDTH 14.7 % (0-14.5); WHITE BLOOD COUNT 7.4 10*3/uL (4.8-10.8)
[2018-05-02 12:10] LABS: ALBUMIN 3.4 gm/dl (3.1-4.5); ALKALINE PHOSPHATASE 83 U/L (45-117); BUN 13 mg/dl (7-24); CHLORIDE 106 mmol/L (98-107); CHOLESTEROL 185 mg/dL (<200); CREATININE 0.89 mg/dL (0.55-1.02); HDL CHOLESTEROL 42 mg/dl (40-60); LDL CHOLESTEROL 113 mg/dL (9-159); POTASSIUM 3.9 mmol/L (3.5-5.1); SGOT/AST 8 IU/L (3-35); SGPT/ALT 13 U/L (12-78); SODIUM 140 mmol/L (136-145); TRIGLYCERIDES 151 mg/dl (<150); VLDL CHOLESTEROL 30 mg/dL (6-40)
[2018-05-02 12:44] LABS: BACTERIA 2+; EPITHELIAL CELLS 20-30
== END | disposition home or self-care (01) ==
LOC: LAB 10:57
PROVIDERS: Internal Medicine Nephrology
DX: I10 Essential (primary) hypertension (principal); K21.9 Gastro-esophageal reflux disease without esophagitis; F41.9 Anxiety disorder, unspecified; E66.01 Morbid (severe) obesity due to excess calories; F32.9 Major depressive disorder, single episode, unspecified; E11.40 Type 2 diabetes mellitus with diabetic neuropathy, unspecified; Z79.4 Long term (current) use of insulin; Z88.0 Allergy status to penicillin

== ENCOUNTER → 2018-05-18 | Outpatient (CLI) | payer OTHER ==
[2018-05-18 15:20] LABS: BASO % 0.3 % (0.0-1.0); EOS # 0.1 10*3/uL (0.0-0.4); EOS % 1.4 % (1.0-4.0); HEMATOCRIT 36.4 % (37.0-47.0); HEMOGLOBIN 11.5 g/dl (12.0-16.0); LYMPH # 2.3 10*3/uL (1.3-4.4); LYMPH % 25.9 % (27.0-41.0); MEAN CELL VOLUME 73.4 fl (81.0-99.0); MEAN CORPUSCULAR HGB 23.2 pg (27.0-31.0); MEAN CORPUSCULAR HGB CONC 31.6 g/dl (33.0-37.0); MEAN PLATELET VOLUME 9.7 fl (9.6-12.3); MONO # 0.4 10*3/uL (0.1-1.0); MONO % 4.7 % (3.0-9.0); NEUT % 67.4 % (47.0-73.0); PLATELET COUNT AUTOMATED 271 10*3/uL (130-400); RED BLOOD COUNT 4.96 10*6/uL (4.10-5.10); RED CELL DISTRI WIDTH 15.1 % (0-14.5)
== END | disposition home or self-care (01) ==
LOC: RESCLI 02:26
PROVIDERS: Student in an Organized Health Care Education/Training Program
DX: M50.822 Other cervical disc disorders at C5-C6 level (principal); M25.512 Pain in left shoulder; R29.898 Other symptoms and signs involving the musculoskeletal system; E11.40 Type 2 diabetes mellitus with diabetic neuropathy, unspecified; I25.119 Atherosclerotic heart disease of native coronary artery with unspecified angina pectoris; K59.00 Constipation, unspecified; K21.9 Gastro-esophageal reflux disease without esophagitis; I10 Essential (primary) hypertension; J30.9 Allergic rhinitis, unspecified; F41.9 Anxiety disorder, unspecified; E66.01 Morbid (severe) obesity due to excess calories; K62.5 Hemorrhage of anus and rectum; F32.9 Major depressive disorder, single episode, unspecified; Z79.899 Other long term (current) drug therapy; Z88.8 Allergy status to other drugs, medicaments and biological substances; Z79.4 Long term (current) use of insulin; Z88.0 Allergy status to penicillin; Z90.710 Acquired absence of both cervix and uterus

== ENCOUNTER 2018-07-10 07:29 | Emergency (ER) | payer OTHER ==
[~2018-07-10] VITALS: Ht 162.5 cm; Wt 95.3 kg
--- NOTE | ~2018-07-10 | EKG ---
[place], [place] ELECTROCARDIOGRAM REPORT NAME: SILVIA PARDO UNIT #: [id number] ROOM: DOCTOR: CAMILA DRAFT REPORT BIRTHDATE: [birth year] [facility] Test Date: 2018-07-10 Test Time: 07:56:12 Pat Name: SILVIA PARDO Department: Room: Gender: F Home Manager: DEMETRIUS : 1975 Requested By: BIANKA ANDRE Order Number: [id number] Reading MD: Jose Medel MD Measurements Intervals [place] Rate: 79 P: 40 PA: 131 QRS: -39 QRSD: 78 T: 46 QT: 379 QTc: 435 Interpretive Statements Sinus rhythm Electronically Signed On 07-11-2018 12:05:09 PDT by Jose Medel MD CM:EKGRPT:ELECTROCARDIOGRAM REPORT [id number] BIANKA PARNELL DRAFT REPORT BIANKA ANDRE DO
[2018-07-10] MEDS ORDERED: LATU40TA PO (07:44)
[2018-07-10] MEDS ORDERED: HUMALOG100 UNIT/1 SQ (07:45)
[2018-07-10] MEDS ORDERED: TOUJEO SOL300 UNIT/1 SQ (07:45)
[2018-07-10 08:01] LABS: BASO % 0.4 % (0.0-1.0); EOS # 0.2 10*3/uL (0.0-0.4); EOS % 3.1 % (1.0-4.0); HEMATOCRIT 34.1 % (37.0-47.0); HEMOGLOBIN 10.9 g/dl (12.0-16.0); LYMPH # 1.9 10*3/uL (1.3-4.4); MEAN CELL VOLUME 71.9 fl (81.0-99.0); MEAN PLATELET VOLUME 10.4 fl (9.6-12.3); MONO # 0.4 10*3/uL (0.1-1.0); MONO % 5.4 % (3.0-9.0); NEUT # 4.3 10*3/uL (2.3-7.9); NEUT % 63.2 % (47.0-73.0); PLATELET COUNT AUTOMATED 236 10*3/uL (130-400); RED BLOOD COUNT 4.74 10*6/uL (4.10-5.10); RED CELL DISTRI WIDTH 14.6 % (0-14.5); WHITE BLOOD COUNT 6.9 10*3/uL (4.8-10.8)
[2018-07-10 08:10] LABS: ACT PARTIAL THROMBO TIME 23.8 SECONDS (20.8-31.5); INTERNATIONAL NORM RATIO 0.9 (2.0-3.5)
[2018-07-10 08:17] LABS: ALBUMIN 3.1 gm/dl (3.1-4.5); ALKALINE PHOSPHATASE 76 U/L (45-117); BUN 12 mg/dl (7-24); CHLORIDE 103 mmol/L (98-107); CREATININE 0.72 mg/dL (0.55-1.02); LIPASE 70 U/L (73-393); POTASSIUM 3.9 mmol/L (3.5-5.1); SGOT/AST 15 IU/L (3-35); SGPT/ALT 19 U/L (12-78); SODIUM 137 mmol/L (136-145); TOTAL PROTEIN 7.1 gm/dL (6.4-8.2)
[2018-07-10 08:19] LABS: BETA-HCG, QUANT < 1.0 mIU/mL (1-3); TROPONIN I < 0.015 ng/ml (<0.045)
[2018-07-10 08:27] VITALS: BP 116/71
[2018-07-10] MEDS ORDERED: ZITHROMAX250 MG PO (08:49)
[2018-07-26] MEDS ORDERED: TOUJEO SOL300 UNIT/1 SC (08:52)
[2018-07-26] MEDS ORDERED: COLACE100 MG PO (08:53)
[2018-07-26] MEDS ORDERED: ZOCOR40 MG PO (08:54)
[2018-07-26] MEDS ORDERED: LATU40TA PO (08:55)
== END 2018-07-10 08:59 | disposition home or self-care (01) ==
LOC: ED 07:29
PROVIDERS: Emergency Medicine
DX: J20.9 Acute bronchitis, unspecified (principal); E78.5 Hyperlipidemia, unspecified; E11.9 Type 2 diabetes mellitus without complications; E66.9 Obesity, unspecified; Z88.0 Allergy status to penicillin; Z88.1 Allergy status to other antibiotic agents; Z88.2 Allergy status to sulfonamides; Z88.8 Allergy status to other drugs, medicaments and biological substances; Z79.82 Long term (current) use of aspirin; Z79.899 Other long term (current) drug therapy; Z79.4 Long term (current) use of insulin; Z90.710 Acquired absence of both cervix and uterus

== ENCOUNTER → 2018-07-30 | Day surgery (SDC) | payer OTHER ==
[~2018-07-30] VITALS: Ht 162.5 cm; Wt 95.3 kg
[~2018-07-30] MED LIST changes: +COLACE100 MG PO; +HUMALOG100 UNIT/1 SQ; +LATU40TA PO; +TOUJEO SOL300 UNIT/1 SC; +ZITHROMAX250 MG PO; +ZOCOR40 MG PO
[2018-07-30 07:34] VITALS: BP 147/81
[2018-07-30 08:38] VITALS: BP 115/67
[2018-07-30 08:46] VITALS: BP 124/72
[2018-07-30 09:11] VITALS: BP 131/78
== END | disposition home or self-care (01) ==
LOC: SDC 07-12 14:00
DX: R10.9 Unspecified abdominal pain (principal); K29.50 Unspecified chronic gastritis without bleeding; D64.9 Anemia, unspecified; I10 Essential (primary) hypertension; I25.10 Atherosclerotic heart disease of native coronary artery without angina pectoris; E11.40 Type 2 diabetes mellitus with diabetic neuropathy, unspecified; E66.01 Morbid (severe) obesity due to excess calories; G89.29 Other chronic pain; K21.9 Gastro-esophageal reflux disease without esophagitis; F41.8 Other specified anxiety disorders; F31.9 Bipolar disorder, unspecified; Z90.710 Acquired absence of both cervix and uterus; Z98.890 Other specified postprocedural states; Z68.36 Body mass index [BMI] 36.0-36.9, adult; Z88.1 Allergy status to other antibiotic agents; Z88.0 Allergy status to penicillin; Z88.2 Allergy status to sulfonamides; Z79.899 Other long term (current) drug therapy; Z82.49 Family history of ischemic heart disease and other diseases of the circulatory system; Z80.9 Family history of malignant neoplasm, unspecified

== ENCOUNTER → 2018-11-21 | Outpatient (CLI) | payer OTHER | END | disposition home or self-care (01) | LOC: MAMMO 13:40 | DX: Z12.31 Encounter for screening mammogram for malignant neoplasm of breast (principal) ==

== ENCOUNTER → 2018-11-23 | Outpatient (CLI) | payer OTHER ==
[2018-11-23 09:15] LABS: BASO % 0.4 % (0.0-1.0); EOS # 0.1 10*3/uL (0.0-0.4); EOS % 1.5 % (1.0-4.0); HEMATOCRIT 36.8 % (37.0-47.0); HEMOGLOBIN 11.8 g/dl (12.0-16.0); LYMPH # 1.7 10*3/uL (1.3-4.4); LYMPH % 20.3 % (27.0-41.0); MEAN CELL VOLUME 73.2 fl (81.0-99.0); MEAN CORPUSCULAR HGB 23.5 pg (27.0-31.0); MEAN CORPUSCULAR HGB CONC 32.1 g/dl (33.0-37.0); MEAN PLATELET VOLUME 9.4 fl (9.6-12.3); MONO # 0.5 10*3/uL (0.1-1.0); MONO % 5.3 % (3.0-9.0); NEUT # 6.1 10*3/uL (2.3-7.9); NEUT % 71.9 % (47.0-73.0); PLATELET COUNT AUTOMATED 262 10*3/uL (130-400); RED BLOOD COUNT 5.03 10*6/uL (4.10-5.10); RED CELL DISTRI WIDTH 15.2 % (0-14.5); WHITE BLOOD COUNT 8.5 10*3/uL (4.8-10.8)
[2018-11-23 09:43] LABS: ALBUMIN 3.4 gm/dl (3.1-4.5); ALKALINE PHOSPHATASE 80 U/L (45-117); BUN 22 mg/dl (7-24); CHLORIDE 103 mmol/L (98-107); CHOLESTEROL 154 mg/dL (<200); CREATININE 0.85 mg/dL (0.55-1.02); HDL CHOLESTEROL 45 mg/dl (40-60); LDL CHOLESTEROL 74 mg/dL (9-159); SGOT/AST 8 IU/L (3-35); SGPT/ALT 16 U/L (12-78); SODIUM 139 mmol/L (136-145); TOTAL PROTEIN 7.3 gm/dL (6.4-8.2); TRIGLYCERIDES 177 mg/dl (<150); VLDL CHOLESTEROL 35 mg/dL (6-40)
[2018-11-23 11:09] LABS: VITAMIN D, 25-HYDROXY 16.9 ng/mL (30-100)
== END | disposition home or self-care (01) ==
LOC: LAB 08:45
PROVIDERS: Nurse Practitioner Family
DX: I10 Essential (primary) hypertension (principal); E11.40 Type 2 diabetes mellitus with diabetic neuropathy, unspecified; D50.9 Iron deficiency anemia, unspecified; E78.5 Hyperlipidemia, unspecified

== ENCOUNTER → 2018-12-14 | Outpatient (CLI) | payer OTHER ==
[~2018-12-14] MED LIST changes: +DOXYCYCLINE100 M3 PO; +IBUPROFEN600 MG PO; +ROBAXIN500 M1 PO
== END | disposition home or self-care (01) ==
LOC: US 12-05 09:30
DX: K76.0 Fatty (change of) liver, not elsewhere classified (principal); N94.10 Unspecified dyspareunia; N95.0 Postmenopausal bleeding; R14.0 Abdominal distension (gaseous); Z90.710 Acquired absence of both cervix and uterus

== ENCOUNTER → 2018-12-18 | Outpatient (CLI) | payer OTHER ==
[2018-12-18 09:58] LABS: BILIRUBIN NEGATIVE (NEGATIVE); BLOOD NEGATIVE (NEGATIVE); CLARITY SL CLOUDY (CLEAR); COLOR YELLOW (YELLOW); GLUCOSE 3+ (NEGATIVE); KETONE NEGATIVE (NEGATIVE); LEUKO ESTERASE NEGATIVE (NEGATIVE); NITRITE NEGATIVE (NEGATIVE); PH 5.5 (5.0-9.0); UROBILINOGEN 0.2 E.U./dl (0.2-1.0)
[2018-12-18 10:13] LABS: EPITHELIAL CELLS 20-30
[2018-12-18 10:15] LABS: BACTERIA 1+; RBC 0-2 rbc/hpf (0-2); WBC 0-2 wbc/hpf (0-5); YEAST TRACE
[2018-12-18 10:21] LABS: BUN 19 mg/dl (7-24); CHLORIDE 104 mmol/L (98-107); CREATININE 0.77 mg/dL (0.55-1.02); SODIUM 139 mmol/L (136-145)
[2018-12-18 10:59] LABS: VITAMIN D, 25-HYDROXY 25.3 ng/mL (30-100)
== END | disposition home or self-care (01) ==
LOC: EDSTATUS 09:31 → LAB 09:31
PROVIDERS: Internal Medicine
DX: E11.65 Type 2 diabetes mellitus with hyperglycemia (principal); E11.40 Type 2 diabetes mellitus with diabetic neuropathy, unspecified; E55.9 Vitamin D deficiency, unspecified

== ENCOUNTER → 2019-04-25 | Outpatient (CLI) | payer OTHER ==
[2019-04-25 11:27] LABS: BILIRUBIN NEGATIVE (NEGATIVE); BLOOD NEGATIVE (NEGATIVE); CLARITY SL CLOUDY (CLEAR); COLOR YELLOW (YELLOW); GLUCOSE 3+ (NEGATIVE); KETONE NEGATIVE (NEGATIVE); LEUKO ESTERASE NEGATIVE (NEGATIVE); NITRITE NEGATIVE (NEGATIVE); PH 5.5 (5.0-9.0); UROBILINOGEN 0.2 E.U./dl (0.2-1.0)
[2019-04-25 11:35] LABS: BACTERIA TRACE; EPITHELIAL CELLS 21-30
[2019-04-25 12:08] LABS: BUN 14 mg/dl (7-24); CHLORIDE 108 mmol/L (98-107); CHOLESTEROL 220 mg/dL (<200); CREATININE 0.85 mg/dL (0.55-1.02); POTASSIUM 3.7 mmol/L (3.5-5.1); SODIUM 142 mmol/L (136-145); TRIGLYCERIDES 234 mg/dl (<150); VLDL CHOLESTEROL 47 mg/dL (6-40)
[2019-04-25 12:12] LABS: HDL CHOLESTEROL 45 mg/dl (40-60); LDL CHOLESTEROL 128 mg/dL (9-159)
[2019-04-25 12:40] LABS: VITAMIN D, 25-HYDROXY 28.8 ng/mL (30-100)
== END | disposition home or self-care (01) ==
LOC: LAB 10:45
PROVIDERS: Internal Medicine
DX: E55.9 Vitamin D deficiency, unspecified (principal); E78.5 Hyperlipidemia, unspecified; E11.65 Type 2 diabetes mellitus with hyperglycemia; E11.40 Type 2 diabetes mellitus with diabetic neuropathy, unspecified; R25.2 Cramp and spasm

== ENCOUNTER 2019-05-16 15:55 | Emergency (ER) | payer OTHER ==
[~2019-05-16] VITALS: Ht 162.5 cm; Wt 96.2 kg
[~2019-05-16 15:55] MED LIST changes: -DOXYCYCLINE100 M3 PO; -IBUPROFEN600 MG PO; -ROBAXIN500 M1 PO
[2019-05-16 15:59] VITALS: BP 137/68
[2019-05-16] MEDS ORDERED: ROBAXIN500 M1 PO (18:26)
[2019-05-16] MEDS ORDERED: DOXYCYCLINE100 M3 PO (18:26)
[2019-05-16] MEDS ORDERED: IBUPROFEN600 MG PO (18:26)
== END 2019-05-16 19:39 | disposition home or self-care (01) ==
LOC: ED 15:55
DX: S92.511A Displaced fracture of proximal phalanx of right lesser toe(s), initial encounter for closed fracture (principal); S93.401A Sprain of unspecified ligament of right ankle, initial encounter; S13.4XXA Sprain of ligaments of cervical spine, initial encounter; S30.0XXA Contusion of lower back and pelvis, initial encounter; S09.90XA Unspecified injury of head, initial encounter; R11.10 Vomiting, unspecified; Z79.82 Long term (current) use of aspirin; Z88.0 Allergy status to penicillin; Z88.1 Allergy status to other antibiotic agents; Z88.2 Allergy status to sulfonamides; Z88.8 Allergy status to other drugs, medicaments and biological substances; Z79.899 Other long term (current) drug therapy; W18.39XA Other fall on same level, initial encounter; Y93.89 Activity, other specified; Y92.830 Public park as the place of occurrence of the external cause; Y99.8 Other external cause status

== ENCOUNTER 2019-09-10 09:49 | Emergency (ER) | payer OTHER ==
[~2019-09-10] VITALS: Ht 162.5 cm; Wt 90.7 kg
[2019-09-10 09:49] VITALS: BP 140/78
[~2019-09-10 09:49] MED LIST changes: +DOXYCYCLINE100 M3 PO; +IBUPROFEN600 MG PO; +ROBAXIN500 M1 PO
[2019-09-10 10:39] LABS: BASO % 0.4 % (0.0-1.0); EOS # 0.1 10*3/uL (0.0-0.4); EOS % 1.9 % (1.0-4.0); HEMATOCRIT 39.3 % (37.0-47.0); HEMOGLOBIN 12.4 g/dl (12.0-16.0); LYMPH # 1.9 10*3/uL (1.3-4.4); LYMPH % 25.8 % (27.0-41.0); MEAN CELL VOLUME 73.6 fl (81.0-99.0); MEAN CORPUSCULAR HGB 23.2 pg (27.0-31.0); MEAN CORPUSCULAR HGB CONC 31.6 g/dl (33.0-37.0); MEAN PLATELET VOLUME 9.5 fl (9.6-12.3); MONO # 0.4 10*3/uL (0.1-1.0); MONO % 5.2 % (3.0-9.0); NEUT # 4.8 10*3/uL (2.3-7.9); NEUT % 66.3 % (47.0-73.0); PLATELET COUNT AUTOMATED 281 10*3/uL (130-400); RED BLOOD COUNT 5.34 10*6/uL (4.10-5.10); RED CELL DISTRI WIDTH 14.6 % (0-14.5); WHITE BLOOD COUNT 7.3 10*3/uL (4.8-10.8)
[2019-09-10 10:55] LABS: ALBUMIN 3.7 gm/dl (3.1-4.5); ALKALINE PHOSPHATASE 76 U/L (45-117); BUN 19 mg/dl (7-24); CHLORIDE 104 mmol/L (98-107); CREATININE 0.96 mg/dL (0.55-1.02); POTASSIUM 3.9 mmol/L (3.5-5.1); SGOT/AST 15 IU/L (3-35); SGPT/ALT 22 U/L (12-78); SODIUM 138 mmol/L (136-145); TOTAL PROTEIN 7.5 gm/dL (6.4-8.2)
[2019-09-10] MEDS ORDERED: OFLOXACIN OTIC5 ML OT (11:45)
[2019-09-10] MEDS ORDERED: ZITHROMAX250 MG PO (11:45)
== END 2019-09-10 11:56 | disposition home or self-care (01) ==
LOC: ED 09:49
PROVIDERS: Emergency Medicine
DX: J40 Bronchitis, not specified as acute or chronic (principal); H60.92 Unspecified otitis externa, left ear; E11.9 Type 2 diabetes mellitus without complications; I25.10 Atherosclerotic heart disease of native coronary artery without angina pectoris; I10 Essential (primary) hypertension; K21.9 Gastro-esophageal reflux disease without esophagitis; Z88.0 Allergy status to penicillin; Z88.1 Allergy status to other antibiotic agents; Z88.2 Allergy status to sulfonamides; Z88.8 Allergy status to other drugs, medicaments and biological substances; Z79.899 Other long term (current) drug therapy; Z79.4 Long term (current) use of insulin; Z79.82 Long term (current) use of aspirin

== ENCOUNTER → 2019-10-29 | Outpatient (CLI) | payer OTHER ==
[~2019-10-29] MED LIST changes: +OFLOXACIN OTIC5 ML OT
[2019-10-29 11:29] LABS: BILIRUBIN NEGATIVE (NEGATIVE); BLOOD NEGATIVE (NEGATIVE); CLARITY SL CLOUDY (CLEAR); COLOR YELLOW (YELLOW); GLUCOSE 3+ (NEGATIVE); KETONE NEGATIVE (NEGATIVE); LEUKO ESTERASE NEGATIVE (NEGATIVE); NITRITE NEGATIVE (NEGATIVE); PH 6.5 (5.0-9.0); SPECIFIC GRAVITY 1.015 (1.005-1.030); UROBILINOGEN 0.2 E.U./dl (0.2-1.0)
[2019-10-29 11:54] LABS: ALBUMIN 3.7 gm/dl (3.1-4.5); ALKALINE PHOSPHATASE 49 U/L (45-117); BILIRUBIN, DIRECT 0.1 mg/dL (0.0-0.2); BUN 15 mg/dl (7-24); CHLORIDE 108 mmol/L (98-107); CHOLESTEROL 157 mg/dL (<200); CREATININE 0.94 mg/dL (0.55-1.02); HDL CHOLESTEROL 50 mg/dl (40-60); LDL CHOLESTEROL 89 mg/dL (9-159); POTASSIUM 3.8 mmol/L (3.5-5.1); SGOT/AST 12 IU/L (3-35); SGPT/ALT 26 U/L (12-78); SODIUM 141 mmol/L (136-145); TOTAL PROTEIN 7.3 gm/dL (6.4-8.2); TRIGLYCERIDES 90 mg/dl (<150); VLDL CHOLESTEROL 18 mg/dL (6-40)
[2019-10-29 13:14] LABS: VITAMIN D, 25-HYDROXY 50.1 ng/mL (30-100)
== END | disposition home or self-care (01) ==
LOC: LAB 10:51
PROVIDERS: Internal Medicine
DX: E78.5 Hyperlipidemia, unspecified (principal); E11.65 Type 2 diabetes mellitus with hyperglycemia; E55.9 Vitamin D deficiency, unspecified; E11.40 Type 2 diabetes mellitus with diabetic neuropathy, unspecified; R25.2 Cramp and spasm

== ENCOUNTER → 2020-02-25 | Outpatient (CLI) | payer OTHER ==
[2020-02-25 10:59] LABS: ALKALINE PHOSPHATASE 53 U/L (45-117); BILIRUBIN, DIRECT < 0.1 mg/dL (0.0-0.2); BUN 20 mg/dl (7-24); CHLORIDE 104 mmol/L (98-107); CHOLESTEROL 169 mg/dL (<200); CREATININE 1.05 mg/dL (0.55-1.02); HDL CHOLESTEROL 55 mg/dl (40-60); LDL CHOLESTEROL 86 mg/dL (9-159); POTASSIUM 3.8 mmol/L (3.5-5.1); SGOT/AST 9 IU/L (3-35); SGPT/ALT 21 U/L (12-78); SODIUM 139 mmol/L (136-145); TOTAL PROTEIN 7.7 gm/dL (6.4-8.2); TRIGLYCERIDES 142 mg/dl (<150); VLDL CHOLESTEROL 28 mg/dL (6-40)
[2020-02-25 11:18] LABS: BACTERIA 2+; BILIRUBIN NEGATIVE (NEGATIVE); BLOOD NEGATIVE (NEGATIVE); CLARITY SL CLOUDY (CLEAR); COLOR YELLOW (YELLOW); EPITHELIAL CELLS 31-40; GLUCOSE 3+ (NEGATIVE); KETONE NEGATIVE (NEGATIVE); LEUKO ESTERASE NEGATIVE (NEGATIVE); NITRITE NEGATIVE (NEGATIVE); PH 6.5 (5.0-9.0); SPECIFIC GRAVITY 1.015 (1.005-1.030); UROBILINOGEN 0.2 E.U./dl (0.2-1.0); YEAST 1+
[2020-02-25 11:25] LABS: VITAMIN D, 25-HYDROXY 50.3 ng/mL (30-100)
== END | disposition home or self-care (01) ==
LOC: LAB 09:57
PROVIDERS: Internal Medicine
DX: E78.5 Hyperlipidemia, unspecified (principal); E11.65 Type 2 diabetes mellitus with hyperglycemia; E55.9 Vitamin D deficiency, unspecified; E11.40 Type 2 diabetes mellitus with diabetic neuropathy, unspecified; R25.2 Cramp and spasm

== ENCOUNTER → 2020-04-14 | Outpatient (CLI) | payer OTHER ==
[2020-04-14 11:12] LABS: ALBUMIN 3.9 gm/dl (3.1-4.5); ALKALINE PHOSPHATASE 40 U/L (45-117); BILIRUBIN, DIRECT < 0.1 mg/dL (0.0-0.2); BUN 21 mg/dl (7-24); CHLORIDE 106 mmol/L (98-107); CHOLESTEROL 196 mg/dL (<200); CREATININE 1.07 mg/dL (0.55-1.02); HDL CHOLESTEROL 52 mg/dl (40-60); LDL CHOLESTEROL 114 mg/dL (9-159); POTASSIUM 3.8 mmol/L (3.5-5.1); SGOT/AST 15 IU/L (3-35); SGPT/ALT 19 U/L (12-78); SODIUM 139 mmol/L (136-145); TOTAL PROTEIN 7.6 gm/dL (6.4-8.2); TRIGLYCERIDES 151 mg/dl (<150); VLDL CHOLESTEROL 30 mg/dL (6-40)
[2020-04-14 11:30] LABS: BILIRUBIN NEGATIVE (NEGATIVE); BLOOD NEGATIVE (NEGATIVE); CLARITY SL CLOUDY (CLEAR); COLOR YELLOW (YELLOW); GLUCOSE 2+ (NEGATIVE); KETONE NEGATIVE (NEGATIVE); LEUKO ESTERASE TRACE (NEGATIVE); NITRITE NEGATIVE (NEGATIVE); UROBILINOGEN 0.2 E.U./dl (0.2-1.0)
[2020-04-14 11:31] LABS: VITAMIN D, 25-HYDROXY 35.7 ng/mL (30-100)
== END | disposition home or self-care (01) ==
LOC: LAB 10:19
PROVIDERS: Internal Medicine
DX: E11.65 Type 2 diabetes mellitus with hyperglycemia (principal); E78.5 Hyperlipidemia, unspecified; E55.9 Vitamin D deficiency, unspecified; R25.2 Cramp and spasm; E11.40 Type 2 diabetes mellitus with diabetic neuropathy, unspecified

== ENCOUNTER → 2020-06-26 | Outpatient (CLI) | payer OTHER ==
[2020-06-26 09:25] LABS: ALBUMIN 3.8 gm/dl (3.1-4.5); ALKALINE PHOSPHATASE 39 U/L (45-117); BILIRUBIN, DIRECT < 0.1 mg/dL (0.0-0.2); BUN 14 mg/dl (7-24); CHLORIDE 106 mmol/L (98-107); CHOLESTEROL 162 mg/dL (<200); CREATININE 1.14 mg/dL (0.55-1.02); HDL CHOLESTEROL 58 mg/dl (40-60); LDL CHOLESTEROL 84 mg/dL (9-159); POTASSIUM 4.1 mmol/L (3.5-5.1); SGOT/AST 13 IU/L (3-35); SGPT/ALT 23 U/L (12-78); SODIUM 139 mmol/L (136-145); TOTAL PROTEIN 7.4 gm/dL (6.4-8.2); TRIGLYCERIDES 101 mg/dl (<150); VLDL CHOLESTEROL 20 mg/dL (6-40)
[2020-06-26 09:50] LABS: VITAMIN D, 25-HYDROXY 53.1 ng/mL (30-100)
[2020-06-26 10:07] LABS: CLARITY CLEAR (CLEAR); COLOR YELLOW (YELLOW)
[2020-06-26 10:08] LABS: BILIRUBIN NEGATIVE; GLUCOSE 3+
[2020-06-26 10:10] LABS: BLOOD NEGATIVE (NEGATIVE); KETONE NEGATIVE; LEUKO ESTERASE NEGATIVE (NEGATIVE); NITRITE NEGATIVE (NEGATIVE); SPECIFIC GRAVITY > 1.030 (1.001-1.030)
[2020-06-26 10:11] LABS: RBC 0-2 rbc/hpf (0-2); WBC 0-2 wbc/hpf (0-5); YEAST TRACE
== END | disposition home or self-care (01) ==
LOC: LAB 08:31
PROVIDERS: ATTEND Internal Medicine
DX: E11.40 Type 2 diabetes mellitus with diabetic neuropathy, unspecified (principal); E11.65 Type 2 diabetes mellitus with hyperglycemia; E78.5 Hyperlipidemia, unspecified; R25.2 Cramp and spasm; E55.9 Vitamin D deficiency, unspecified

== ENCOUNTER → 2020-10-13 | Outpatient (CLI) | payer OTHER ==
[2020-10-13 10:08] LABS: ALBUMIN 3.2 gm/dl (3.1-4.5); ALKALINE PHOSPHATASE 60 U/L (45-117); BILIRUBIN, DIRECT < 0.1 mg/dL (0.0-0.2); BUN 14 mg/dl (7-24); CHLORIDE 111 mmol/L (98-107); CHOLESTEROL 181 mg/dL (<200); CREATININE 0.62 mg/dL (0.55-1.02); HDL CHOLESTEROL 60 mg/dl (40-60); LDL CHOLESTEROL 104 mg/dL (9-159); POTASSIUM 3.7 mmol/L (3.5-5.1); SGOT/AST 7 IU/L (3-35); SGPT/ALT 12 U/L (12-78); SODIUM 145 mmol/L (136-145); TOTAL PROTEIN 6.3 gm/dL (6.4-8.2); TRIGLYCERIDES 86 mg/dl (<150); VLDL CHOLESTEROL 17 mg/dL (6-40)
[2020-10-13 10:19] LABS: BILIRUBIN Negative (Negative); CLARITY Cloudy (Clear); COLOR Yellow (Yellow); GLUCOSE 3+ (Negative); KETONE Negative (Negative); LEUKO ESTERASE Negative (Negative)
[2020-10-13 10:20] LABS: BLOOD Negative (Negative); NITRITE Negative (Negative)
[2020-10-13 10:21] LABS: BACTERIA 1+; EPITHELIAL CELLS 21-30; WBC 0-2 wbc/hpf (0-5)
[2020-10-13 11:47] LABS: VITAMIN D, 25-HYDROXY 45.5 ng/mL (30-100)
== END | disposition home or self-care (01) ==
LOC: LAB 08:32
PROVIDERS: Internal Medicine; ATTEND Preventive Medicine Occupational Medicine
DX: E11.65 Type 2 diabetes mellitus with hyperglycemia (principal); E78.5 Hyperlipidemia, unspecified; E55.9 Vitamin D deficiency, unspecified; E11.40 Type 2 diabetes mellitus with diabetic neuropathy, unspecified; R25.2 Cramp and spasm

== ENCOUNTER → 2021-02-11 | Outpatient (CLI) | payer OTHER ==
[2021-02-11 08:05] LABS: BILIRUBIN Negative (Negative); BLOOD Negative (Negative); CLARITY Cloudy (Clear); COLOR Yellow (Yellow); GLUCOSE 3+ (Negative); KETONE Trace (Negative); LEUKO ESTERASE Negative (Negative); NITRITE Negative (Negative); SPECIFIC GRAVITY >= 1.030 (1.001-1.030); UROBILINOGEN 0.2 E.U./dl (0.0-1.0)
[2021-02-11 08:16] LABS: BACTERIA TRACE; RBC 0-2 rbc/hpf (0-2); WBC 0-2 wbc/hpf (0-5); YEAST 4+
[2021-02-11 08:30] LABS: ALBUMIN 3.7 gm/dl (3.1-4.5); ALKALINE PHOSPHATASE 63 U/L (45-117); BILIRUBIN, DIRECT < 0.1 mg/dL (0.0-0.2); BUN 19 mg/dl (7-24); CHLORIDE 108 mmol/L (98-107); CHOLESTEROL 244 mg/dL (<200); HDL CHOLESTEROL 69 mg/dl (40-60); LDL CHOLESTEROL 156 mg/dL (9-159); POTASSIUM 3.9 mmol/L (3.5-5.1); SGOT/AST 15 IU/L (3-35); SGPT/ALT 18 U/L (12-78); SODIUM 139 mmol/L (136-145); TRIGLYCERIDES 97 mg/dl (<150); VLDL CHOLESTEROL 19 mg/dL (6-40)
[2021-02-11 08:31] LABS: TOTAL PROTEIN 7.1 gm/dL (6.4-8.2)
[2021-02-11 08:35] LABS: VITAMIN D, 25-HYDROXY 54.2 ng/mL (30-100)
== END | disposition home or self-care (01) ==
LOC: LAB 07:39
PROVIDERS: ATTEND Internal Medicine
DX: E11.40 Type 2 diabetes mellitus with diabetic neuropathy, unspecified (principal); E11.65 Type 2 diabetes mellitus with hyperglycemia; E55.9 Vitamin D deficiency, unspecified; R25.2 Cramp and spasm; E78.5 Hyperlipidemia, unspecified

== ENCOUNTER 2021-03-15 07:47 | Emergency (ER) | payer OTHER ==
[~2021-03-15] VITALS: Ht 162.5 cm
[2021-03-15 07:54] VITALS: BP 135/80
[2021-03-15 08:51] LABS: BASO % 0.5 % (0.0-1.0); EOS # 0.1 10*3/uL (0.0-0.4); EOS % 1.9 % (1.0-4.0); HEMATOCRIT 38.3 % (37.0-47.0); LYMPH # 2.1 10*3/uL (1.3-4.4); LYMPH % 31.9 % (27.0-41.0); MEAN CELL VOLUME 73.7 fl (81.0-99.0); MEAN CORPUSCULAR HGB 23.8 pg (27.0-31.0); MEAN CORPUSCULAR HGB CONC 32.4 g/dl (33.0-37.0); MEAN PLATELET VOLUME 9.6 fl (9.6-12.3); MONO # 0.4 10*3/uL (0.1-1.0); MONO % 6.5 % (3.0-9.0); NEUT # 3.8 10*3/uL (2.3-7.9); NEUT % 58.7 % (47.0-73.0); PLATELET COUNT AUTOMATED 286 10*3/uL (130-400); RED CELL DISTRI WIDTH 13.3 % (0-14.5); WHITE BLOOD COUNT 6.5 10*3/uL (4.8-10.8)
[2021-03-15 09:12] LABS: ALBUMIN 3.6 gm/dl (3.1-4.5); ALKALINE PHOSPHATASE 66 U/L (45-117); BUN 16 mg/dl (7-24); CHLORIDE 107 mmol/L (98-107); CREATININE 0.64 mg/dL (0.55-1.02); LIPASE 101 U/L (73-393); POTASSIUM 3.8 mmol/L (3.5-5.1); SGOT/AST 12 IU/L (3-35); SGPT/ALT 14 U/L (12-78); SODIUM 140 mmol/L (136-145); TOTAL PROTEIN 6.9 gm/dL (6.4-8.2)
[2021-03-15 09:13] LABS: TROPONIN I < 0.015 ng/ml (<0.045)
[2021-03-15 09:46] LABS: BILIRUBIN Negative (Negative); BLOOD Negative (Negative); CLARITY Clear (Clear); COLOR Yellow (Yellow); GLUCOSE 3+ (Negative); KETONE Negative (Negative); LEUKO ESTERASE Negative (Negative); NITRITE Negative (Negative); SPECIFIC GRAVITY >= 1.030 (1.001-1.030); UROBILINOGEN 0.2 E.U./dl (0.0-1.0)
[2021-03-15 10:08] LABS: BACTERIA 2+; RBC 0-2 rbc/hpf (0-2); WBC 0-2 wbc/hpf (0-5); YEAST 4+
[2021-03-15] MEDS ORDERED: ZOFRAN4 MG PO (11:41)
== END 2021-03-15 11:47 | disposition home or self-care (01) ==
LOC: ED 07:47
PROVIDERS: Emergency Medicine
DX: B34.9 Viral infection, unspecified (principal); Z20.822 Contact with and (suspected) exposure to COVID-19; Z88.0 Allergy status to penicillin; Z88.1 Allergy status to other antibiotic agents; Z88.2 Allergy status to sulfonamides; Z79.2 Long term (current) use of antibiotics; Z79.899 Other long term (current) drug therapy; Z79.82 Long term (current) use of aspirin; Z90.711 Acquired absence of uterus with remaining cervical stump

== ENCOUNTER 2021-07-01 12:18 | Inpatient (IN) | payer OTHER ==
[~2021-07-01] VITALS: Ht 162.5 cm; Wt 79.2 kg
[2021-07-01 12:44] VITALS: BP 132/80
[2021-07-01 12:46] LABS: BASO % 0.4 % (0.0-1.0); EOS % 0.7 % (1.0-4.0); MEAN CELL VOLUME 72.4 fl (81.0-99.0); MEAN CORPUSCULAR HGB 23.3 pg (27.0-31.0); MEAN CORPUSCULAR HGB CONC 32.1 g/dl (33.0-37.0); MEAN PLATELET VOLUME 10.4 fl (9.6-12.3); MONO # 0.4 10*3/uL (0.1-1.0); MONO % 7.1 % (3.0-9.0); NEUT # 4.2 10*3/uL (2.3-7.9); NEUT % 73.4 % (47.0-73.0); PLATELET COUNT AUTOMATED 300 10*3/uL (130-400); RED BLOOD COUNT 6.49 10*6/uL (4.10-5.10); WHITE BLOOD COUNT 5.7 10*3/uL (4.8-10.8)
[2021-07-01 13:02] LABS: ALBUMIN 4.6 gm/dl (3.1-4.5); ALKALINE PHOSPHATASE 100 U/L (45-117); BUN 15 mg/dl (7-24); CHLORIDE 100 mmol/L (98-107); CREATININE 0.89 mg/dL (0.55-1.02); POTASSIUM 3.6 mmol/L (3.5-5.1); SGOT/AST 16 IU/L (3-35); SGPT/ALT 19 U/L (12-78); SODIUM 135 mmol/L (136-145); TOTAL PROTEIN 8.5 gm/dL (6.4-8.2)
[2021-07-01 13:03] VITALS: BP 150/83
[2021-07-01 13:03] LABS: TROPONIN I < 0.015 ng/ml (<0.045)
[2021-07-02] VITALS (10 sets, daily range): BP systolic 91–124; BP diastolic 48–67
[2021-07-02 06:36] LABS: ALBUMIN 2.9 gm/dl (3.1-4.5); ALKALINE PHOSPHATASE 63 U/L (45-117); BUN 12 mg/dl (7-24); CHLORIDE 110 mmol/L (98-107); CHOLESTEROL 169 mg/dL (<200); CREATININE 0.61 mg/dL (0.55-1.02); LDL CHOLESTEROL 99 mg/dL (9-159); POTASSIUM 3.7 mmol/L (3.5-5.1); SGOT/AST 11 IU/L (3-35); SGPT/ALT 14 U/L (12-78); SODIUM 141 mmol/L (136-145); TOTAL PROTEIN 5.8 gm/dL (6.4-8.2); TRIGLYCERIDES 105 mg/dl (<150)
[2021-07-02 07:21] LABS: BASO % 0.3 % (0.0-1.0); EOS % 0.3 % (1.0-4.0); HEMATOCRIT 37.5 % (37.0-47.0); LYMPH # 0.5 10*3/uL (1.3-4.4); LYMPH % 15.2 % (27.0-41.0); MEAN CORPUSCULAR HGB 23.8 pg (27.0-31.0); MEAN CORPUSCULAR HGB CONC 30.9 g/dl (33.0-37.0); MEAN PLATELET VOLUME 10.7 fl (9.6-12.3); MONO # 0.3 10*3/uL (0.1-1.0); NEUT # 2.7 10*3/uL (2.3-7.9); NEUT % 75.9 % (47.0-73.0); RED BLOOD COUNT 4.87 10*6/uL (4.10-5.10); RED CELL DISTRI WIDTH 14.6 % (0-14.5); WHITE BLOOD COUNT 3.5 10*3/uL (4.8-10.8)
[2021-07-02 07:24] LABS: PLATELET COUNT AUTOMATED 172 10*3/uL (130-400)
[2021-07-03] VITALS: BP 129/70
[2021-07-03 08:00] VITALS: BP 111/66
== END 2021-07-03 12:17 | disposition home or self-care (01) | DRG 720 ==
LOC: ED 12:18 → EDHOLD 16:11 → 4E 07-02 17:22
PROVIDERS: Emergency Medicine; Family Medicine; ADMIT Family Medicine; ATTEND Family Medicine
DX: A41.89 Other specified sepsis (principal); U07.1 COVID-19; E87.1 Hypo-osmolality and hyponatremia; E86.0 Dehydration; K44.9 Diaphragmatic hernia without obstruction or gangrene; E44.0 Moderate protein-calorie malnutrition; E87.5 Hyperkalemia; E11.22 Type 2 diabetes mellitus with diabetic chronic kidney disease; E11.65 Type 2 diabetes mellitus with hyperglycemia; E83.52 Hypercalcemia; F31.9 Bipolar disorder, unspecified; Z88.0 Allergy status to penicillin; Z68.30 Body mass index [BMI] 30.0-30.9, adult; Z88.1 Allergy status to other antibiotic agents; Z88.2 Allergy status to sulfonamides; Z88.8 Allergy status to other drugs, medicaments and biological substances; Z79.899 Other long term (current) drug therapy; Z82.49 Family history of ischemic heart disease and other diseases of the circulatory system; Z79.82 Long term (current) use of aspirin; Z79.2 Long term (current) use of antibiotics; Z79.4 Long term (current) use of insulin

== ENCOUNTER → 2022-02-04 | Outpatient (CLI) | payer OTHER ==
[2022-02-04 08:14] LABS: BASO % 0.5 % (0.0-1.0); EOS # 0.1 10*3/uL (0.0-0.4); EOS % 1.9 % (1.0-4.0); HEMATOCRIT 36.9 % (37.0-47.0); LYMPH % 32.3 % (27.0-41.0); MEAN CELL VOLUME 73.9 fl (81.0-99.0); MEAN CORPUSCULAR HGB 23.4 pg (27.0-31.0); MEAN CORPUSCULAR HGB CONC 31.7 g/dl (33.0-37.0); MEAN PLATELET VOLUME 9.7 fl (9.6-12.3); MONO # 0.5 10*3/uL (0.1-1.0); NEUT # 3.6 10*3/uL (2.3-7.9); PLATELET COUNT AUTOMATED 306 10*3/uL (130-400); RED BLOOD COUNT 4.99 10*6/uL (4.10-5.10); WHITE BLOOD COUNT 6.2 10*3/uL (4.8-10.8)
[2022-02-04 08:33] LABS: ALKALINE PHOSPHATASE 57 U/L (45-117); BUN 26 mg/dl (7-24); CHLORIDE 104 mmol/L (98-107); CHOLESTEROL 177 mg/dL (<200); CREATININE 0.93 mg/dL (0.55-1.02); IRON 41 ug/dL (50-170); LDL CHOLESTEROL 87 mg/dL (9-159); POTASSIUM 3.6 mmol/L (3.5-5.1); SGOT/AST 13 IU/L (3-35); SGPT/ALT 16 U/L (12-78); SODIUM 141 mmol/L (136-145); TOTAL IRON BINDING CAPACITY 456 ug/dl (250-450); TOTAL PROTEIN 7.1 gm/dL (6.4-8.2); TRIGLYCERIDES 44 mg/dl (<150)
[2022-02-04 09:14] LABS: VITAMIN D, 25-HYDROXY 38.1 ng/mL (30-100)
[2022-02-04 09:15] LABS: FERRITIN 51.5 ng/mL (10.0-291.0)
== END | disposition home or self-care (01) ==
LOC: LAB 07:56
PROVIDERS: ATTEND Nurse Practitioner Family
DX: E11.40 Type 2 diabetes mellitus with diabetic neuropathy, unspecified (principal); I10 Essential (primary) hypertension; Z23 Encounter for immunization; E78.5 Hyperlipidemia, unspecified; D50.9 Iron deficiency anemia, unspecified

== ENCOUNTER → 2022-04-01 | Outpatient (CLI) | payer OTHER | END | disposition home or self-care (01) | LOC: CARD 08:00 | PROVIDERS: ATTEND Nurse Practitioner Family | DX: R07.9 Chest pain, unspecified (principal); R55 Syncope and collapse ==

== ENCOUNTER → 2022-04-07 | Outpatient (CLI) | payer OTHER | END | disposition home or self-care (01) | LOC: CARD 10:42 | PROVIDERS: ATTEND Nurse Practitioner Family | DX: R07.9 Chest pain, unspecified (principal); R55 Syncope and collapse ==

== ENCOUNTER → 2022-05-03 | Outpatient (CLI) | payer OTHER ==
[~2022-05-03] MED LIST changes: +AMBIEN10 M1 PO; +FENOFIBRATE145 M1 PO; +FLONASE ALLERG9.9 ML NAS; +JARDIANCE25 MG PO; +NOVOLIN 70100 UNIT/2 SQ; +PROAIR HFA8.5 GM INH; +PROTONIX40 MG PO; +TRULANCE PO; +TRULICITY3 MG/0.5 M SQ; +VIT D PO
== END | disposition home or self-care (01) ==
LOC: CARD 00:06
PROVIDERS: ATTEND Internal Medicine Cardiovascular Disease
DX: I20.9 Angina pectoris, unspecified (principal)

== ENCOUNTER → 2022-05-17 | Outpatient (CLI) | payer OTHER | END | disposition home or self-care (01) | LOC: CARD 01:42 | PROVIDERS: ATTEND Internal Medicine Cardiovascular Disease | DX: I20.9 Angina pectoris, unspecified (principal) ==

== ENCOUNTER 2022-07-05 20:16 | Emergency (ER) | payer OTHER ==
[~2022-07-05] VITALS: Ht 160 cm; Wt 83.9 kg
[2022-07-05 21:51] LABS: BASO % 0.5 % (0.0-1.0); EOS # 0.1 10*3/uL (0.0-0.4); EOS % 1.1 % (1.0-4.0); HEMATOCRIT 37.5 % (37.0-47.0); LYMPH # 1.7 10*3/uL (1.3-4.4); LYMPH % 26.8 % (27.0-41.0); MEAN CELL VOLUME 74.6 fl (81.0-99.0); MEAN CORPUSCULAR HGB 24.3 pg (27.0-31.0); MEAN CORPUSCULAR HGB CONC 32.5 g/dl (33.0-37.0); MEAN PLATELET VOLUME 9.6 fl (9.6-12.3); MONO # 0.4 10*3/uL (0.1-1.0); MONO % 5.4 % (3.0-9.0); NEUT # 4.3 10*3/uL (2.3-7.9); NEUT % 65.7 % (47.0-73.0); PLATELET COUNT AUTOMATED 281 10*3/uL (130-400); RED BLOOD COUNT 5.03 10*6/uL (4.10-5.10); RED CELL DISTRI WIDTH 14.5 % (0-14.5); WHITE BLOOD COUNT 6.5 10*3/uL (4.8-10.8)
[2022-07-05 22:03] LABS: ACT PARTIAL THROMBO TIME 26.9 SECONDS (20.0-32.1); INTERNATIONAL NORM RATIO 0.9 (2.0-3.5)
[2022-07-05 22:07] LABS: CREATININE 1.21 mg/dL (0.55-1.02); POTASSIUM 3.6 mmol/L (3.5-5.1); TOTAL PROTEIN 7.4 gm/dL (6.4-8.2)
[2022-07-05 22:41] VITALS: BP 102/61
== END 2022-07-06 00:21 | disposition home or self-care (01) ==
LOC: ED 20:16
PROVIDERS: Physician Assistant
DX: R07.9 Chest pain, unspecified (principal); I12.9 Hypertensive chronic kidney disease with stage 1 through stage 4 chronic kidney disease, or unspecified chronic kidney disease; E11.22 Type 2 diabetes mellitus with diabetic chronic kidney disease; N18.31 Chronic kidney disease, stage 3a; I25.10 Atherosclerotic heart disease of native coronary artery without angina pectoris; K21.9 Gastro-esophageal reflux disease without esophagitis; Z88.1 Allergy status to other antibiotic agents; Z88.8 Allergy status to other drugs, medicaments and biological substances; Z88.0 Allergy status to penicillin; Z79.82 Long term (current) use of aspirin; Z79.899 Other long term (current) drug therapy; Z90.710 Acquired absence of both cervix and uterus

== ENCOUNTER → 2022-08-31 | Outpatient (CLI) | payer OTHER ==
[~2022-08-31] MED LIST changes: +CETIRIZINE HYDR10 MG PO; +ZESTORETIC 20-1 EACH PO
[2022-08-31 09:02] LABS: BASO % 0.5 % (0.0-1.0); EOS # 0.1 10*3/uL (0.0-0.4); EOS % 1.5 % (1.0-4.0); HEMATOCRIT 39.1 % (37.0-47.0); LYMPH # 1.6 10*3/uL (1.3-4.4); LYMPH % 24.4 % (27.0-41.0); MEAN CELL VOLUME 76.5 fl (81.0-99.0); MEAN CORPUSCULAR HGB 24.9 pg (27.0-31.0); MEAN CORPUSCULAR HGB CONC 32.5 g/dl (33.0-37.0); MEAN PLATELET VOLUME 9.8 fl (9.6-12.3); MONO # 0.4 10*3/uL (0.1-1.0); MONO % 5.6 % (3.0-9.0); NEUT # 4.4 10*3/uL (2.3-7.9); NEUT % 67.4 % (47.0-73.0); PLATELET COUNT AUTOMATED 268 10*3/uL (130-400); RED BLOOD COUNT 5.11 10*6/uL (4.10-5.10); RED CELL DISTRI WIDTH 14.5 % (0-14.5); WHITE BLOOD COUNT 6.5 10*3/uL (4.8-10.8)
[2022-08-31 09:24] LABS: BUN 19 mg/dl (7-24); CHLORIDE 105 mmol/L (98-107); CHOLESTEROL 148 mg/dL (<200); CREATININE 0.85 mg/dL (0.55-1.02); POTASSIUM 3.9 mmol/L (3.5-5.1); SGOT/AST 15 IU/L (3-35); SGPT/ALT 21 U/L (12-78); SODIUM 136 mmol/L (136-145)
[2022-08-31 09:25] LABS: ALKALINE PHOSPHATASE 59 U/L (45-117); LDL CHOLESTEROL 63 mg/dL (9-159); TOTAL PROTEIN 7.4 gm/dL (6.4-8.2); TRIGLYCERIDES 61 mg/dl (<150)
== END | disposition home or self-care (01) ==
LOC: LAB 08:30
PROVIDERS: ATTEND Nurse Practitioner Family
DX: E11.40 Type 2 diabetes mellitus with diabetic neuropathy, unspecified (principal); I10 Essential (primary) hypertension; E78.5 Hyperlipidemia, unspecified; D50.9 Iron deficiency anemia, unspecified

== ENCOUNTER → 2022-12-09 | Outpatient (CLI) | payer OTHER ==
[2022-12-09 07:59] LABS: BASO % 0.2 % (0.0-1.0); EOS # 0.1 10*3/uL (0.0-0.4); EOS % 2.3 % (1.0-4.0); HEMATOCRIT 38.5 % (37.0-47.0); LYMPH # 1.6 10*3/uL (1.3-4.4); LYMPH % 29.1 % (27.0-41.0); MEAN CELL VOLUME 77.5 fl (81.0-99.0); MEAN CORPUSCULAR HGB 24.9 pg (27.0-31.0); MEAN CORPUSCULAR HGB CONC 32.2 g/dl (33.0-37.0); MEAN PLATELET VOLUME 9.3 fl (9.6-12.3); MONO # 0.3 10*3/uL (0.1-1.0); NEUT # 3.4 10*3/uL (2.3-7.9); NEUT % 61.9 % (47.0-73.0); PLATELET COUNT AUTOMATED 284 10*3/uL (130-400); RED BLOOD COUNT 4.97 10*6/uL (4.10-5.10); RED CELL DISTRI WIDTH 14.2 % (0-14.5); WHITE BLOOD COUNT 5.5 10*3/uL (4.8-10.8)
[2022-12-09 08:27] LABS: ALKALINE PHOSPHATASE 48 U/L (46-116); BUN 17 mg/dl (9-23); CHLORIDE 103 mmol/L (98-107); CHOLESTEROL 148 mg/dL (<200); LDL CHOLESTEROL 76 mg/dL (9-159); POTASSIUM 3.7 mmol/L (3.4-5.1); SGPT/ALT 19 U/L (10-49); TOTAL PROTEIN 7.2 gm/dL (6.0-8.0); TRIGLYCERIDES 96 mg/dl (<150)
== END | disposition home or self-care (01) ==
LOC: LAB 07:42
PROVIDERS: ATTEND Nurse Practitioner Family
DX: E11.40 Type 2 diabetes mellitus with diabetic neuropathy, unspecified (principal); I10 Essential (primary) hypertension; D50.9 Iron deficiency anemia, unspecified; E78.5 Hyperlipidemia, unspecified

== ENCOUNTER → 2023-01-13 | Outpatient (CLI) | payer OTHER ==
[2023-01-13 10:06] LABS: BASO % 0.5 % (0.0-1.0); EOS # 0.1 10*3/uL (0.0-0.4); EOS % 1.7 % (1.0-4.0); HEMATOCRIT 40.4 % (37.0-47.0); LYMPH # 1.8 10*3/uL (1.3-4.4); MEAN CELL VOLUME 79.2 fl (81.0-99.0); MEAN CORPUSCULAR HGB 25.3 pg (27.0-31.0); MEAN CORPUSCULAR HGB CONC 31.9 g/dl (33.0-37.0); MEAN PLATELET VOLUME 9.7 fl (9.6-12.3); MONO # 0.4 10*3/uL (0.1-1.0); MONO % 6.4 % (3.0-9.0); NEUT % 62.8 % (47.0-73.0); PLATELET COUNT AUTOMATED 279 10*3/uL (130-400); RED CELL DISTRI WIDTH 14.1 % (0-14.5); WHITE BLOOD COUNT 6.4 10*3/uL (4.8-10.8)
[2023-01-13 10:56] LABS: ALKALINE PHOSPHATASE 51 U/L (46-116); BUN 13 mg/dl (9-23); CHLORIDE 109 mmol/L (98-107); FREE T4 0.96 ng/dl (0.89-1.76); LDH 156 U/L (120-246); POTASSIUM 3.8 mmol/L (3.4-5.1); SGPT/ALT 15 U/L (10-49); TOTAL PROTEIN 7.2 gm/dL (6.0-8.0)
[2023-01-18 16:08] LABS: METHYLMALONIC ACID 152 nmol/L (0-378)
[2023-01-26 04:06] LABS: ESTRADIOL, SERUM, MS 3.3 pg/mL (.); FREE ESTRADIOL % 1.2 % (.)
== END | disposition home or self-care (01) ==
LOC: TELEHEALTH 00:42 → LAB 00:42 → TELEHEALTH 11:42
PROVIDERS: ATTEND Internal Medicine
DX: D50.9 Iron deficiency anemia, unspecified (principal); R55 Syncope and collapse; R53.82 Chronic fatigue, unspecified; I25.10 Atherosclerotic heart disease of native coronary artery without angina pectoris; E11.9 Type 2 diabetes mellitus without complications; K21.9 Gastro-esophageal reflux disease without esophagitis; Z88.0 Allergy status to penicillin; Z88.8 Allergy status to other drugs, medicaments and biological substances; Z79.4 Long term (current) use of insulin; Z79.899 Other long term (current) drug therapy

== ENCOUNTER → 2023-03-10 | Outpatient (CLI) | payer OTHER | END | disposition home or self-care (01) | LOC: TELEHEALTH 03:20 | PROVIDERS: ATTEND Internal Medicine | DX: D50.9 Iron deficiency anemia, unspecified (principal); R53.82 Chronic fatigue, unspecified; R55 Syncope and collapse; I25.10 Atherosclerotic heart disease of native coronary artery without angina pectoris; I10 Essential (primary) hypertension; F41.9 Anxiety disorder, unspecified; F32.A Depression, unspecified; Z88.0 Allergy status to penicillin; Z88.1 Allergy status to other antibiotic agents; Z88.8 Allergy status to other drugs, medicaments and biological substances; Z79.82 Long term (current) use of aspirin; Z79.899 Other long term (current) drug therapy ==

== ENCOUNTER → 2023-03-22 | Outpatient (CLI) | payer OTHER ==
[2023-03-22 09:53] LABS: ALKALINE PHOSPHATASE 65 U/L (46-116); BUN 21 mg/dl (9-23); CHLORIDE 106 mmol/L (98-107); CHOLESTEROL 210 mg/dL (<200); LDL CHOLESTEROL 116 mg/dL (9-159); SGPT/ALT 15 U/L (10-49); TOTAL PROTEIN 7.1 gm/dL (6.0-8.0); TRIGLYCERIDES 86 mg/dl (<150)
== END | disposition home or self-care (01) ==
LOC: LAB 09:02
PROVIDERS: ATTEND Nurse Practitioner Family
DX: K21.9 Gastro-esophageal reflux disease without esophagitis (principal); I10 Essential (primary) hypertension; D50.9 Iron deficiency anemia, unspecified; E11.40 Type 2 diabetes mellitus with diabetic neuropathy, unspecified; K52.9 Noninfective gastroenteritis and colitis, unspecified

== ENCOUNTER → 2023-03-23 | Outpatient (CLI) | payer OTHER ==
[2023-03-23 13:07] LABS: POTASSIUM 4.2 mmol/L (3.4-5.1)
== END | disposition home or self-care (01) ==
LOC: LAB 12:18
PROVIDERS: ATTEND Nurse Practitioner Family
DX: R63.5 Abnormal weight gain (principal); E78.5 Hyperlipidemia, unspecified; D50.9 Iron deficiency anemia, unspecified; I10 Essential (primary) hypertension; E11.40 Type 2 diabetes mellitus with diabetic neuropathy, unspecified

== ENCOUNTER → 2023-04-10 | Outpatient (CLI) | payer OTHER ==
[2023-04-10 09:59] VITALS: BP 144/84
== END | disposition home or self-care (01) ==
LOC: MEDIPORT 09:45
PROVIDERS: ATTEND Internal Medicine
DX: Z95.828 Presence of other vascular implants and grafts (principal); I10 Essential (primary) hypertension; E11.9 Type 2 diabetes mellitus without complications; I25.10 Atherosclerotic heart disease of native coronary artery without angina pectoris; K21.9 Gastro-esophageal reflux disease without esophagitis; F41.9 Anxiety disorder, unspecified; F32.A Depression, unspecified; Z90.710 Acquired absence of both cervix and uterus

== ENCOUNTER → 2023-05-11 | Outpatient (CLI) | payer OTHER ==
[~2023-05-11] MED LIST changes: +OZEMPIC0.25 MG/03 SQ
== END | disposition home or self-care (01) ==
LOC: RAD 12:37
PROVIDERS: ATTEND Nurse Practitioner Family
DX: M25.511 Pain in right shoulder (principal)

== ENCOUNTER 2023-05-15 17:02 | Emergency (ER) | payer OTHER ==
[~2023-05-15] VITALS: Ht 162.5 cm; Wt 83.5 kg
[~2023-05-15 17:02] MED LIST changes: -OZEMPIC0.25 MG/03 SQ
[2023-05-15 17:12] VITALS: BP 155/60
[2023-05-15] MEDS ORDERED: OZEMPIC0.25 MG/03 SQ (17:31)
[2023-05-15 17:55] LABS: BASO % 0.2 % (0.0-1.0); EOS # 0.1 10*3/uL (0.0-0.4); EOS % 1.7 % (1.0-4.0); HEMATOCRIT 37.1 % (37.0-47.0); LYMPH % 33.1 % (27.0-41.0); MEAN CELL VOLUME 74.6 fl (81.0-99.0); MEAN CORPUSCULAR HGB 25.2 pg (27.0-31.0); MEAN CORPUSCULAR HGB CONC 33.7 g/dl (33.0-37.0); MEAN PLATELET VOLUME 9.3 fl (9.6-12.3); MONO # 0.3 10*3/uL (0.1-1.0); MONO % 5.2 % (3.0-9.0); NEUT # 3.6 10*3/uL (2.3-7.9); NEUT % 59.3 % (47.0-73.0); PLATELET COUNT AUTOMATED 230 10*3/uL (130-400); RED BLOOD COUNT 4.97 10*6/uL (4.10-5.10); RED CELL DISTRI WIDTH 13.9 % (0-14.5)
[2023-05-15 18:08] LABS: ACT PARTIAL THROMBO TIME 29.6 SECONDS (20.0-32.1)
[2023-05-15 18:34] LABS: ALKALINE PHOSPHATASE 70 U/L (46-116); BUN 9 mg/dl (9-23); CHLORIDE 108 mmol/L (98-107); POTASSIUM 3.3 mmol/L (3.4-5.1); SGPT/ALT 7 U/L (10-49); TOTAL PROTEIN 6.3 gm/dL (6.0-8.0)
== END 2023-05-15 20:17 | disposition home or self-care (01) ==
LOC: ED 17:02
PROVIDERS: Student in an Organized Health Care Education/Training Program
DX: E87.6 Hypokalemia (principal); R20.2 Paresthesia of skin; E11.65 Type 2 diabetes mellitus with hyperglycemia; F32.A Depression, unspecified; D64.9 Anemia, unspecified; F41.9 Anxiety disorder, unspecified; I25.10 Atherosclerotic heart disease of native coronary artery without angina pectoris; I10 Essential (primary) hypertension; K21.9 Gastro-esophageal reflux disease without esophagitis; Z88.0 Allergy status to penicillin; Z88.1 Allergy status to other antibiotic agents; Z88.2 Allergy status to sulfonamides; Z88.8 Allergy status to other drugs, medicaments and biological substances; Z90.710 Acquired absence of both cervix and uterus; Z98.890 Other specified postprocedural states

== ENCOUNTER → 2023-05-23 | Outpatient (CLI) | payer OTHER ==
[~2023-05-23] MED LIST changes: +OZEMPIC0.25 MG/03 SQ
== END | disposition home or self-care (01) ==
LOC: LAB 11:19
PROVIDERS: ATTEND Nurse Practitioner Family
DX: M50.322 Other cervical disc degeneration at C5-C6 level (principal); E87.6 Hypokalemia; R55 Syncope and collapse; M25.78 Osteophyte, vertebrae

== ENCOUNTER → 2023-11-24 | Outpatient (CLI) | payer OTHER ==
[2023-11-24 11:21] LABS: BASO % 0.5 % (0.0-1.0); EOS # 0.1 10*3/uL (0.0-0.4); EOS % 2.1 % (1.0-4.0); LYMPH # 1.8 10*3/uL (1.3-4.4); LYMPH % 29.5 % (27.0-41.0); MEAN CELL VOLUME 77.1 fl (81.0-99.0); MEAN CORPUSCULAR HGB 24.6 pg (27.0-31.0); MEAN CORPUSCULAR HGB CONC 31.9 g/dl (33.0-37.0); MEAN PLATELET VOLUME 9.5 fl (9.6-12.3); MONO # 0.3 10*3/uL (0.1-1.0); MONO % 5.6 % (3.0-9.0); NEUT # 3.8 10*3/uL (2.3-7.9); NEUT % 61.8 % (47.0-73.0); PLATELET COUNT AUTOMATED 237 10*3/uL (130-400); RED BLOOD COUNT 5.45 10*6/uL (4.10-5.10); RED CELL DISTRI WIDTH 14.6 % (0-14.5); WHITE BLOOD COUNT 6.1 10*3/uL (4.8-10.8)
[2023-11-24 12:01] LABS: ALKALINE PHOSPHATASE 66 U/L (46-116); BUN 18 mg/dl (9-23); CHLORIDE 107 mmol/L (98-107); CHOLESTEROL 209 mg/dL (<200); LDL CHOLESTEROL 110 mg/dL (9-159); POTASSIUM 4.2 mmol/L (3.4-5.1); SGPT/ALT 8 U/L (5-49); TOTAL PROTEIN 7.2 gm/dL (6.0-8.0); TRIGLYCERIDES 116 mg/dl (<150)
== END | disposition home or self-care (01) ==
LOC: LAB 10:56
PROVIDERS: ATTEND Nurse Practitioner Family
DX: I10 Essential (primary) hypertension (principal); E11.40 Type 2 diabetes mellitus with diabetic neuropathy, unspecified; E78.5 Hyperlipidemia, unspecified; J30.2 Other seasonal allergic rhinitis

== ENCOUNTER → 2023-12-12 | Outpatient (CLI) | payer OTHER ==
[2023-12-12 10:51] LABS: BASO % 0.4 % (0.0-1.0); EOS # 0.2 10*3/uL (0.0-0.4); HEMATOCRIT 40.2 % (37.0-47.0); LYMPH # 2.2 10*3/uL (1.3-4.4); LYMPH % 29.6 % (27.0-41.0); MEAN CELL VOLUME 76.6 fl (81.0-99.0); MEAN CORPUSCULAR HGB 24.4 pg (27.0-31.0); MEAN CORPUSCULAR HGB CONC 31.8 g/dl (33.0-37.0); MEAN PLATELET VOLUME 9.5 fl (9.6-12.3); MONO # 0.5 10*3/uL (0.1-1.0); MONO % 6.7 % (3.0-9.0); NEUT # 4.6 10*3/uL (2.3-7.9); NEUT % 60.9 % (47.0-73.0); PLATELET COUNT AUTOMATED 274 10*3/uL (130-400); RED BLOOD COUNT 5.25 10*6/uL (4.10-5.10); RED CELL DISTRI WIDTH 14.3 % (0-14.5); WHITE BLOOD COUNT 7.5 10*3/uL (4.8-10.8)
== END ==
LOC: LAB 10:31
PROVIDERS: ATTEND Nurse Practitioner Family
DX: R79.89 Other specified abnormal findings of blood chemistry (principal)

== ENCOUNTER → 2024-03-19 | Outpatient (CLI) | payer OTHER ==
[~2024-03-19] MED LIST changes: +LOVASTATIN40 MG PO; +LYRICA100 M1 PO; +NAPROXEN500 M1 PO; +NEXIUM40 MG PO; +Regadenoson 0.4 MG/5 ML SYR IV ONE; +TOPAMAX50 MG PO
== END | disposition home or self-care (01) ==
LOC: CARD 00:27
PROVIDERS: ATTEND Internal Medicine Cardiovascular Disease
DX: I20.9 Angina pectoris, unspecified (principal)

== ENCOUNTER → 2024-04-23 | Outpatient (CLI) | payer OTHER ==
[~2024-04-23] MED LIST changes: -Regadenoson 0.4 MG/5 ML SYR IV ONE
[2024-04-23 09:00] LABS: BASO % 0.4 % (0.0-1.0); EOS # 0.1 10*3/uL (0.0-0.4); EOS % 2.3 % (1.0-4.0); HEMATOCRIT 41.2 % (37.0-47.0); LYMPH # 1.8 10*3/uL (1.3-4.4); LYMPH % 31.3 % (27.0-41.0); MEAN CELL VOLUME 74.9 fl (81.0-99.0); MEAN CORPUSCULAR HGB 24.4 pg (27.0-31.0); MEAN CORPUSCULAR HGB CONC 32.5 g/dl (33.0-37.0); MEAN PLATELET VOLUME 9.9 fl (9.6-12.3); MONO # 0.3 10*3/uL (0.1-1.0); NEUT # 3.4 10*3/uL (2.3-7.9); NEUT % 59.6 % (47.0-73.0); PLATELET COUNT AUTOMATED 243 10*3/uL (130-400); RED CELL DISTRI WIDTH 13.9 % (0-14.5); WHITE BLOOD COUNT 5.7 10*3/uL (4.8-10.8)
[2024-04-23 09:10] LABS: URINE CREATININE RANDOM 70.09 mg/dL
[2024-04-23 09:38] LABS: ALKALINE PHOSPHATASE 70 U/L (46-116); BUN 13 mg/dl (9-23); CHLORIDE 109 mmol/L (98-107); CHOLESTEROL 225 mg/dL (<200); LDL CHOLESTEROL 137 mg/dL (9-159); POTASSIUM 3.7 mmol/L (3.4-5.1); SGPT/ALT 9 U/L (5-49); TOTAL PROTEIN 7.1 gm/dL (6.0-8.0); TRIGLYCERIDES 81 mg/dl (<150)
== END | disposition home or self-care (01) ==
LOC: LAB 08:43
PROVIDERS: ATTEND Nurse Practitioner Family
DX: I10 Essential (primary) hypertension (principal); E78.5 Hyperlipidemia, unspecified; E11.40 Type 2 diabetes mellitus with diabetic neuropathy, unspecified; D50.9 Iron deficiency anemia, unspecified; K21.9 Gastro-esophageal reflux disease without esophagitis; R11.0 Nausea; R05.8 Other specified cough; J02.9 Acute pharyngitis, unspecified

== ENCOUNTER → 2024-06-14 | Outpatient (CLI) | payer OTHER ==
[2024-06-14 10:32] LABS: BASO % 0.4 % (0.0-1.0); EOS # 0.1 10*3/uL (0.0-0.4); EOS % 1.4 % (1.0-4.0); HEMATOCRIT 39.7 % (37.0-47.0); LYMPH # 1.6 10*3/uL (1.3-4.4); LYMPH % 27.7 % (27.0-41.0); MEAN CELL VOLUME 76.5 fl (81.0-99.0); MEAN CORPUSCULAR HGB 24.3 pg (27.0-31.0); MEAN CORPUSCULAR HGB CONC 31.7 g/dl (33.0-37.0); MEAN PLATELET VOLUME 9.5 fl (9.6-12.3); MONO # 0.3 10*3/uL (0.1-1.0); MONO % 5.9 % (3.0-9.0); NEUT # 3.6 10*3/uL (2.3-7.9); NEUT % 64.1 % (47.0-73.0); PLATELET COUNT AUTOMATED 267 10*3/uL (130-400); RED BLOOD COUNT 5.19 10*6/uL (4.10-5.10); RED CELL DISTRI WIDTH 14.6 % (0-14.5); WHITE BLOOD COUNT 5.6 10*3/uL (4.8-10.8)
[2024-06-14 11:07] LABS: ALKALINE PHOSPHATASE 75 U/L (46-116); BUN 15 mg/dl (9-23); CHLORIDE 106 mmol/L (98-107); CHOLESTEROL 229 mg/dL (<200); LDL CHOLESTEROL 139 mg/dL (9-159); POTASSIUM 3.8 mmol/L (3.4-5.1); SGPT/ALT 8 U/L (5-49); TOTAL PROTEIN 7.3 gm/dL (6.0-8.0); TRIGLYCERIDES 99 mg/dl (<150)
[2024-06-15 05:06] LABS: HBSAG Negative (Negative); HEP B CORE AB, IGM Negative (Negative); HEPATITIS C ANTIBODY Non Reactive (Non Reactive)
[2024-06-15 13:06] LABS: CCP ANTIBODIES IGG/IGA 12 units (0-19)
[2024-06-15 15:07] LABS: ANTI-RNP ANTIBODIES <0.2 AI (0.0-0.9); LUPUS DRVVT 32.2 sec (0.0-47.0); LUPUS REFLEX INTERPRETATION Comment: (.); PTT-LA 39.9 sec (0.0-43.5)
== END | disposition home or self-care (01) ==
LOC: LAB 09:49
PROVIDERS: Nurse Practitioner Family; ATTEND Orthopaedic Surgery
DX: E78.5 Hyperlipidemia, unspecified (principal); E11.40 Type 2 diabetes mellitus with diabetic neuropathy, unspecified; I10 Essential (primary) hypertension; F43.9 Reaction to severe stress, unspecified; D50.9 Iron deficiency anemia, unspecified

== ENCOUNTER → 2024-06-20 | Outpatient (CLI) | payer OTHER ==
[2024-06-20 10:27] LABS: VITAMIN D, 25-HYDROXY 41.6 ng/mL (30-100)
== END | disposition home or self-care (01) ==
LOC: LAB 09:28
PROVIDERS: ATTEND Nurse Practitioner Family
DX: E83.52 Hypercalcemia (principal)

== ENCOUNTER → 2024-08-13 | Outpatient (CLI) | payer OTHER ==
[2024-08-13 10:28] LABS: BASO % 0.5 % (0.0-1.0); EOS # 0.2 10*3/uL (0.0-0.4); EOS % 2.3 % (1.0-4.0); HEMATOCRIT 42.5 % (37.0-47.0); LYMPH # 1.7 10*3/uL (1.3-4.4); MEAN CELL VOLUME 75.2 fl (81.0-99.0); MEAN CORPUSCULAR HGB 24.6 pg (27.0-31.0); MEAN CORPUSCULAR HGB CONC 32.7 g/dl (33.0-37.0); MEAN PLATELET VOLUME 9.5 fl (9.6-12.3); MONO # 0.4 10*3/uL (0.1-1.0); MONO % 5.5 % (3.0-9.0); NEUT # 4.2 10*3/uL (2.3-7.9); NEUT % 65.2 % (47.0-73.0); PLATELET COUNT AUTOMATED 235 10*3/uL (130-400); RED BLOOD COUNT 5.65 10*6/uL (4.10-5.10); RED CELL DISTRI WIDTH 14.3 % (0-14.5); WHITE BLOOD COUNT 6.4 10*3/uL (4.8-10.8)
[2024-08-13 10:52] LABS: URINE CREATININE RANDOM 73.95 mg/dL
[2024-08-13 10:56] LABS: ALKALINE PHOSPHATASE 92 U/L (46-116); BUN 15 mg/dl (9-23); CHLORIDE 103 mmol/L (98-107); CHOLESTEROL 247 mg/dL (<200); LDL CHOLESTEROL 157 mg/dL (9-159); POTASSIUM 4.2 mmol/L (3.4-5.1); SGPT/ALT 8 U/L (5-49); TOTAL PROTEIN 7.3 gm/dL (6.0-8.0); TRIGLYCERIDES 110 mg/dl (<150)
== END | disposition home or self-care (01) ==
LOC: LAB 09:59
PROVIDERS: ATTEND Nurse Practitioner Family
DX: E11.9 Type 2 diabetes mellitus without complications (principal); I10 Essential (primary) hypertension; E55.9 Vitamin D deficiency, unspecified; Z76.89 Persons encountering health services in other specified circumstances

== ENCOUNTER 2024-10-11 10:01 | Emergency (ER) | payer OTHER ==
[~2024-10-11] VITALS: Ht 162.5 cm; Wt 86.2 kg
[2024-10-11 10:34] VITALS: BP 167/93
[2024-10-11] MEDS ORDERED: SODIUM CHLORIDE 0.9% 1,000 ML IV ONE (10:45)
[2024-10-11] MEDS ORDERED: Ondansetron Hydrochloride 4 MG/2 ML VIAL IV ONE (10:45)
[2024-10-11] MEDS ORDERED: DIAZEPAM 5 MG TAB PO ONE (10:45)
[2024-10-11] MEDS ORDERED: MORPHINE Sulfate 2 MG/ML SYR IV ONE (10:45)
[2024-10-11 11:07] LABS: BASO % 0.5 % (0.0-1.0); EOS # 0.1 10*3/uL (0.0-0.4); EOS % 1.7 % (1.0-4.0); MEAN CELL VOLUME 75.8 fl (81.0-99.0); MEAN CORPUSCULAR HGB 24.4 pg (27.0-31.0); MEAN CORPUSCULAR HGB CONC 32.2 g/dl (33.0-37.0); MEAN PLATELET VOLUME 9.7 fl (9.6-12.3); MONO # 0.3 10*3/uL (0.1-1.0); MONO % 4.5 % (3.0-9.0); NEUT # 3.8 10*3/uL (2.3-7.9); PLATELET COUNT AUTOMATED 257 10*3/uL (130-400); RED BLOOD COUNT 5.41 10*6/uL (4.10-5.10); RED CELL DISTRI WIDTH 14.4 % (0-14.5); WHITE BLOOD COUNT 6.1 10*3/uL (4.8-10.8)
[2024-10-11 11:34] LABS: BUN 15 mg/dl (9-23); CHLORIDE 106 mmol/L (98-107); POTASSIUM 3.8 mmol/L (3.4-5.1)
[2024-10-11] MEDS ORDERED: TRAMADOL HCL50 MG PO (12:03)
[2024-10-11] MEDS ORDERED: METHOCARBAMOL500 M1 PO (12:03)
== END 2024-10-11 12:08 | disposition home or self-care (01) ==
LOC: ED 10:01
PROVIDERS: Emergency Medicine
DX: M54.41 Lumbago with sciatica, right side (principal); F41.9 Anxiety disorder, unspecified; E78.5 Hyperlipidemia, unspecified; F31.9 Bipolar disorder, unspecified; D63.1 Anemia in chronic kidney disease; I25.10 Atherosclerotic heart disease of native coronary artery without angina pectoris; K21.9 Gastro-esophageal reflux disease without esophagitis; E11.22 Type 2 diabetes mellitus with diabetic chronic kidney disease; I12.9 Hypertensive chronic kidney disease with stage 1 through stage 4 chronic kidney disease, or unspecified chronic kidney disease; N18.9 Chronic kidney disease, unspecified; Z88.0 Allergy status to penicillin; Z88.1 Allergy status to other antibiotic agents; Z88.2 Allergy status to sulfonamides; Z88.8 Allergy status to other drugs, medicaments and biological substances; Z95.5 Presence of coronary angioplasty implant and graft; Z90.710 Acquired absence of both cervix and uterus

== ENCOUNTER → 2024-12-10 | Outpatient (CLI) | payer OTHER ==
[~2024-12-10] MED LIST changes: +METHOCARBAMOL500 M1 PO
[2024-12-10 09:52] LABS: BASO % 0.3 % (0.0-1.0); EOS # 0.1 10*3/uL (0.0-0.4); EOS % 1.3 % (1.0-4.0); HEMATOCRIT 41.7 % (37.0-47.0); MEAN CELL VOLUME 75.1 fl (81.0-99.0); MEAN CORPUSCULAR HGB 24.3 pg (27.0-31.0); MEAN CORPUSCULAR HGB CONC 32.4 g/dl (33.0-37.0); MEAN PLATELET VOLUME 9.6 fl (9.6-12.3); MONO # 0.3 10*3/uL (0.1-1.0); MONO % 4.7 % (3.0-9.0); NEUT # 4.4 10*3/uL (2.3-7.9); NEUT % 69.1 % (47.0-73.0); PLATELET COUNT AUTOMATED 253 10*3/uL (130-400); RED BLOOD COUNT 5.55 10*6/uL (4.10-5.10); RED CELL DISTRI WIDTH 14.3 % (0-14.5); WHITE BLOOD COUNT 6.4 10*3/uL (4.8-10.8)
[2024-12-10 10:36] LABS: ALKALINE PHOSPHATASE 75 U/L (46-116); BUN 10 mg/dl (9-23); CHLORIDE 109 mmol/L (98-107); CHOLESTEROL 151 mg/dL (<200); LDL CHOLESTEROL 63 mg/dL (9-159); POTASSIUM 3.8 mmol/L (3.4-5.1); SGPT/ALT 9 U/L (5-49); TOTAL PROTEIN 6.7 gm/dL (6.0-8.0); TRIGLYCERIDES 127 mg/dl (<150)
== END | disposition home or self-care (01) ==
LOC: LAB 09:21
PROVIDERS: Student in an Organized Health Care Education/Training Program; ATTEND Internal Medicine Endocrinology, Diabetes & Metabolism
DX: E11.40 Type 2 diabetes mellitus with diabetic neuropathy, unspecified (principal); D50.9 Iron deficiency anemia, unspecified

== ENCOUNTER → 2025-02-21 | Outpatient (CLI) | payer OTHER ==
[2025-02-21 08:50] LABS: ALKALINE PHOSPHATASE 97 U/L (46-116); BUN 10 mg/dl (9-23); CHLORIDE 104 mmol/L (98-107); CHOLESTEROL 204 mg/dL (<200); LDL CHOLESTEROL 91 mg/dL (9-159); POTASSIUM 3.7 mmol/L (3.4-5.1); SGPT/ALT 10 U/L (5-49); TOTAL PROTEIN 7.1 gm/dL (6.0-8.0); TRIGLYCERIDES 309 mg/dl (<150)
[2025-02-22 01:06] LABS: HEMOGOLBIN A1C 9.9 % (4.8-5.6)
== END | disposition home or self-care (01) ==
LOC: LAB 07:50
PROVIDERS: Student in an Organized Health Care Education/Training Program; ATTEND Internal Medicine Endocrinology, Diabetes & Metabolism
DX: I10 Essential (primary) hypertension (principal); E11.9 Type 2 diabetes mellitus without complications; E78.2 Mixed hyperlipidemia; E61.1 Iron deficiency

== ENCOUNTER 2025-04-05 12:52 | Emergency (ER) | payer OTHER ==
[~2025-04-05] VITALS: Ht 162.5 cm; Wt 79.4 kg
[2025-04-05 13:08] VITALS: BP 140/89
[2025-04-05 13:40] LABS: BASO % 0.5 % (0.0-1.0); EOS # 0.1 10*3/uL (0.0-0.4); EOS % 1.8 % (1.0-4.0); HEMATOCRIT 44.7 % (37.0-47.0); MEAN CELL VOLUME 75.3 fl (81.0-99.0); MEAN CORPUSCULAR HGB 24.4 pg (27.0-31.0); MEAN CORPUSCULAR HGB CONC 32.4 g/dl (33.0-37.0); MEAN PLATELET VOLUME 9.3 fl (9.6-12.3); MONO # 0.4 10*3/uL (0.1-1.0); MONO % 5.7 % (3.0-9.0); NEUT % 61.4 % (47.0-73.0); PLATELET COUNT AUTOMATED 250 10*3/uL (130-400); RED BLOOD COUNT 5.94 10*6/uL (4.10-5.10); RED CELL DISTRI WIDTH 13.7 % (0-14.5); WHITE BLOOD COUNT 6.5 10*3/uL (4.8-10.8)
[2025-04-05 13:59] LABS: BUN 12 mg/dl (9-23); CHLORIDE 105 mmol/L (98-107); POTASSIUM 4.3 mmol/L (3.4-5.1)
[2025-04-05] MEDS ORDERED: LORazepam 1 MG TAB PO ONE (15:35)
== END 2025-04-05 16:28 | disposition home or self-care (01) ==
LOC: ED 12:52
PROVIDERS: Nurse Practitioner Family
DX: F41.1 Generalized anxiety disorder (principal); R07.89 Other chest pain; E11.65 Type 2 diabetes mellitus with hyperglycemia; I12.9 Hypertensive chronic kidney disease with stage 1 through stage 4 chronic kidney disease, or unspecified chronic kidney disease; E11.22 Type 2 diabetes mellitus with diabetic chronic kidney disease; N18.31 Chronic kidney disease, stage 3a; K21.9 Gastro-esophageal reflux disease without esophagitis; F32.A Depression, unspecified; F41.9 Anxiety disorder, unspecified; Z79.4 Long term (current) use of insulin; Z79.82 Long term (current) use of aspirin; Z79.899 Other long term (current) drug therapy; Z88.0 Allergy status to penicillin; Z88.1 Allergy status to other antibiotic agents; Z88.2 Allergy status to sulfonamides; Z88.8 Allergy status to other drugs, medicaments and biological substances; Z90.710 Acquired absence of both cervix and uterus; Z98.890 Other specified postprocedural states

== ENCOUNTER → 2025-06-24 | Outpatient (CLI) | payer OTHER ==
[2025-06-24 09:29] LABS: BUN 12 mg/dl (9-23); LDL CHOLESTEROL 79 mg/dL (9-159); SGPT/ALT 8 U/L (5-49)
== END | disposition home or self-care (01) ==
LOC: LAB 08:06
PROVIDERS: Student in an Organized Health Care Education/Training Program; ATTEND Internal Medicine Endocrinology, Diabetes & Metabolism
DX: E11.40 Type 2 diabetes mellitus with diabetic neuropathy, unspecified (principal); E78.5 Hyperlipidemia, unspecified